=== PATIENT | female | born 1955 | race Caucasian/White ===

== ENCOUNTER → 2018-07-23 | Outpatient (CLI) | payer BC ==
--- NOTE | 2018-07-23 15:56 | MR ---
Right hip MRI HISTORY: Right hip pain Multiplanar multisequence imaging obtained through the pelvis with small [id number]-pa-[id number] images through the right hip No plain film correlation. Degenerative disc changes are noted in the visualized lumbar spine. The right hip shows joint space loss, subchondral marrow signal change, possible geode formation in t he femoral head remodeling, there is marginal spurring present. There is a joint effusion. No evident fracture or dislocation. Grade 3 to grade IV chondromalacia is present. Uterus shows approximate 4 cm fibroid. No free fluid in the pelvis. IMPRESSION: Osteoarthritis. Fibroid uterus. Degenerative disc disease lumbosacral spine.
== END | disposition home or self-care (01) ==
LOC: RADMRIMAIN 11:54
PROVIDERS: ATTEND Family Medicine
DX: M16.11 Unilateral primary osteoarthritis, right hip (principal); M51.37 Other intervertebral disc degeneration, lumbosacral region

== ENCOUNTER → 2019-05-22 | Outpatient (CLI) | payer BC ==
[2019-05-22 14:26] LABS: ALT 27 U/L (9-52); AST 22 U/L (14-36); African American GFR (CKD) >90 (>60 ml/min/1.73 sqM); Albumin 4.3 g/dL (3.5-5.0); Alkaline Phosphatase 69 U/L (38-126); Anion Gap 10 mmol/L; Blood Urea Nitrogen 15 mg/dL (7-17); Calcium 9.5 mg/dL (8.4-10.2); Carbon Dioxide 23 mmol/L (22-30); Chloride 107 mmol/L (98-107); Glucose 117 mg/dL (74-99); INR 0.9 (<1.2); Partial Thromboplastin Time 24.3 sec (22.0-30.0); Potassium 4.6 mmol/L (3.5-5.1); Sodium 140 mmol/L (137-145); Total Bilirubin 0.5 mg/dL (0.2-1.3); Total Protein 7.4 g/dL (6.3-8.2)
[2019-05-22 14:30] LABS: HCT 44.6 % (34.0-46.0); HGB 14.4 gm/dL (11.4-16.0); MCH 31.2 pg (25.0-35.0); MCHC 32.3 g/dL (31.0-37.0); MCV 96.6 fL (80.0-100.0); Platelet Count 372 k/uL (150-450); RBC 4.62 m/uL (3.80-5.40); RDW 14.5 % (11.5-15.5); WBC 12.6 k/uL (3.8-10.6)
[2019-05-22 14:48] LABS: Appearance,Urine Clear (Clear); Bilirubin,Urine Negative (Negative); Blood,Urine Negative (Negative); Color,Urine Light Yellow; Glucose,Urine (UA) Negative (Negative); Ketones,Urine Negative (Negative); Leukocyte Esterase,Urine Negative (Negative); Nitrite,Urine Negative (Negative); Protein,Urine Negative (Negative); Specific Gravity,Urine 1.007 (1.001-1.035); Urobilinogen,Urine <2.0 mg/dL (<2.0)
== END | disposition home or self-care (01) ==
LOC: LABPAT 12:03
PROVIDERS: ATTEND Orthopaedic Surgery
DX: Z01.818 Encounter for other preprocedural examination (principal); Z01.812 Encounter for preprocedural laboratory examination; M16.11 Unilateral primary osteoarthritis, right hip
CPT/HCPCS: 36415; 80053; 81003; 85027; 85610; 85730; 87070; 93005

== ENCOUNTER 2019-06-01 05:39 | Inpatient (IN) | payer BC ==
[2019-05-26 10:36] VITALS: BMI 33.0
[~2019-06-01 05:39] MED LIST: ACETAMINOPHEN TAB 500 MG TAB PO ONE; GABAPENTIN 300 MG CAP PO ONE; MELOXICAM 7.5 MG TAB PO ONE; TRANEXAMIC ACID 1,000 MG in SODIUM CHLORIDE 0.9% 100 ML IVPB ONE
[2019-06-01] MEDS ORDERED: ROPIVACAINE 246.25 MG, EPINEPHrine 0.5 MG, KETOROLAC 30 MG, cloNIDine HCL/PF 80 MCG, WA... MISCELLANE ONE ×5 (06:00)
[2019-06-01] MEDS ORDERED: LIDOCAINE 1% 20 ML VIAL (10MG/ML) FOR IV START INTRADERMA PRN (06:18)
[2019-06-01] MEDS ORDERED: ONDANSETRON 4 MG/2 ML VIAL IVP ONE (06:18)
[2019-06-01] MEDS ORDERED: HYDROmorphone 0.5 MG/0.5 ML SYRINGE IVP PRN ×3 (06:18→07:00)
[2019-06-01 06:37] LABS: Glucose,Whole Blood 93 mg/dL (75-99)
[2019-06-01] MEDS: LACTATED RINGERS 1,000 ML IV SCH (06:37)
[2019-06-01] MEDS ORDERED: DEXAMETHASONE SOD PHOSPHATE 10 MG/ML 1 ML VIAL IV ONE (06:38)
[2019-06-01] MEDS ORDERED: TRANEXAMIC ACID 1,000 MG/10 ML VIAL ONE (06:57)
[2019-06-01] MEDS ORDERED: ePHEDrine SULFATE/0.9% NACL/PF 50 MG/5 ML SYRINGE IV ONE (06:57)
[2019-06-01] MEDS ORDERED: SODIUM CHLORIDE 0.9% 100 ML BAG ONE (06:57)
[2019-06-01] MEDS ORDERED: PHENYLEPHRINE-0.9% NACL SYG 1 MG/10 ML SYRINGE ONE (06:57)
[2019-06-01] MEDS ORDERED: MIDAZOLAM 2 MG/2 ML VIAL ONE (06:57)
[2019-06-01] MEDS ORDERED: LACTATED RINGERS 1,000 ML BAG IV ONE (06:57)
[2019-06-01] MEDS ORDERED: fentaNYL (PF) 50 MCG/ML 2 ML AMP ONE (06:57)
[2019-06-01] MEDS ORDERED: PROPOFOL 10 MG/ML 20 ML VIAL IV ONE (06:57)
[2019-06-01] MEDS ORDERED: HEPARIN SODIUM,PORCINE 10,000 UNIT/ML 1 ML VIAL ONE (06:57)
[2019-06-01] MEDS ORDERED: hydrOXYzine PAMOATE 25 MG CAP PO PRN (07:00)
[2019-06-01] MEDS ORDERED: HYDROcodone/APAP 5-325MG 1 EACH TAB PO PRN (07:00)
[2019-06-01] MEDS ORDERED: NALOXONE 0.4 MG/ML 1 ML VIAL IV PRN (07:00)
[2019-06-01] MEDS ORDERED: ONDANSETRON 4 MG/2 ML VIAL IVP PRN (07:00)
[2019-06-01] MEDS ORDERED: MAGNESIUM HYDROXIDE 2,400 MG/10 ML CUP PO PRN (07:00)
[2019-06-01] MEDS ORDERED: HYDROmorphone 1 MG/ML 1 ML SYRINGE IVP PRN (07:00)
[2019-06-01] MEDS ORDERED: DIAZEPAM 5 MG TAB PO PRN (07:00)
[2019-06-01] MEDS ORDERED: ceFAZolin 3,000 MG in SODIUM CHLORIDE 0.9% IRRIGATIO 3,000 ML IRRIGATION ONE (07:00)
[2019-06-01] MEDS ORDERED: LACTATED RINGERS 1,000 ML IV ONE (08:01)
--- NOTE | 2019-06-01 08:28 | P.OP ---
Date of Procedure: 06/01/19 Preoperative Diagnosis: Severe osteoarthritis right hip Postoperative Diagnosis: Severe osteoarthritis right hip Procedure(s) Performed: Right total hip arthroplasty with a direct anterior approach Implants: Silva and nephew Polarstem size 4 standard Silva & Nephew R3, 3 hole acetabular shell, 48 mm Silva & Nephew reflection 6.5 mm cancellus screw, 20 mm 2 Silva [employer] Nephew R3, XLPE 20 acetabular liner Silva & Nephew Oxinium femoral head 32 m, -3 All components were press-fit. The articulation is Oxinium on polyethylene. Anesthesia: spinal Surgeon: Narendra Penaloza Network Contract Manager #1: Tamra Brown Estimated Blood Loss (ml): 100 Pathology: other (Femoral head) Condition: stable Disposition: PACU Indications for Procedure: After failure of conservative treatment we discussed the surgical and nonsurgical treatment options at length. Patient wishes to proceed with a total hip arthroplasty with a direct anterior approach. Complications specific to this procedure were discussed at length, including but not limited to infection, leg length discrepancy, dislocation, and nerve injury. Patient is aware of all these complications and informed consent was obtained Operative Findings: The operative findings are consistent with severe osteoarthritis of the right hip Description of Procedure: Patient was seen and evaluated in the preoperative area, consent was reviewed, and the surgical site was marked with a skin marker. Patient was then brought to the operating room and given prophylactic antibiotics intravenously. 1 g of Tranexamic acid was also given. A spinal anesthetic was administered by the anesthesia department. The patient was then placed on the [place] table with the bony prominences well-padded. The hip area was then prepped and draped in usual sterile fashion. A universal timeout was then performed, which confirmed the patient's name, surgical site, ALLERGIES, and procedure being performed. Next the incision site was located at 1 cm distal and 1 cm lateral to the anterior superior iliac spine. The skin and subcutaneous tissues were sharply incised. Incision was carefully dissected down to the fascia overlying the tensor fascia santo muscle. This fascia was then incised in line with the incision. Next, using blunt finger dissection, the tensor fascia santo muscle was dissected off its investing fascia. The muscle was then carefully retracted laterally with a cobra retractor over the lateral neck of the femur. Next, the circumflex vessels were identified and cauterized using the AquaMantis device. The anterior hip capsule was then exposed. The capsule was then opened and an inverted T fashion. Cobra retractors were then placed intracapsularly. The proximal femur was then visualized. The femoral neck was then osteotomized appropriate level above the lesser trochanter. Small amount of traction was placed with the [place] table. A small wedge of bone was then removed from the remaining femoral head. Next, using a corkscrew femoral head was easily removed from the acetabulum. On gross visual inspection, the femoral head had complete loss of articular cartilage in multiple periarticular osteophytes. Attention was then turned to the acetabulum. the acetabulum was exposed and any remaining labrum was excised. Sequential reaming of the acetabulum was performed using fluoroscopic guidance. When the appropriate size was reached, a trial was then placed. The position and fit of the trial was checked with fluoroscopy. The trial was then removed. Then, using fluoroscopic guidance, the final implant was impacted at 20 of anteversion and 40 of abduction, and fully seated in the acetabulum. 2 screws were then placed in the acetabulum. Again fluoroscopy was used to check position of the screws. Next, the liner was then impacted, with a 20 elevated liner located in the anterior superior quadrant. Component locking was confirmed. Attention was then directed to the femur. With the aid of the [place] table, the femur was externally rotated to approximately 130, extended, and abducted under the opposite leg. A side hook was then placed under the proximal femur, and the side hook elevator was used to elevate the proximal femur. Retractors were then placed. A capsular release was performed, as well as a release of the conjoined tendon, which afforded excellent visualization of the proximal femur. Next, a box osteotome was used to lateralize the proximal femur. A rig hand was then used to locate the femoral canal. Sequential broaching was then performed with appropriate size which afforded excellent fixation in the proximal femur. A trial was then placed with appropriate head and neck, and the hip was gently reduced with the aid of the [place] table. Fluoroscopy was then used to check position of the components, as well as to ensure equal leg lengths. The hip was then gently dislocated and the trials were then removed. Final implants were then impacted and the hip was again reduced. Final fluoroscopic x-rays confirmed that the components were in anatomic position, as well as equal leg lengths. The hip was also taken through range of motion, and found to be stable. The hip was then copiously irrigated with antibiotic solution with pulsatile lavage. The hip was then irrigated with Irrisept solution. The soft tissues were then injected with a ropivacaine solution, which consisted of 246.25 mg of ropivacaine, 0.5 mg of epinephrine, 30 mg of Toradol, 80 g of clonidine, and 48.45 mL of sterile water, for a total of 100 mL of fluid injected. A second dose of 1 g of Tranexamic acid was also given. the fascia was then closed with 2-0 strata fix suture. The subcutaneous tissue was closed with 3-0 Vicryl. The subcuticular tissue was closed with 3-0 strata fix suture. The skin was then closed with Dermabond glue and a sterile silver dressing. The patient was then transferred to the recovery room in stable condition. The animal care assistant VIKKI Aceevdo was required due to the complexity of surgery, and the need for skilled salesperson surgical appliances for positioning, draping, exposure, retraction, and closure of the wound.
--- NOTE | 2019-06-01 09:26 | XR ---
Limited right hip HISTORY: Status post right hip arthroplasty Single frontal view of the right hip Patient is status post right hip arthroplasty. There is anatomic alignment. Lucency is present in the soft tissues consistent with postop state. Exam somewhat limited technically. IMPRESSION: Orthopedic follow-up.
[2019-06-01] MEDS: SODIUM CHLORIDE 0.9% 1,000 ML IV SCH ×2 (12:36→20:15)
[2019-06-01] MEDS: ALPRAZolam 1 MG TAB PO SCH ×2 (14:59→21:32)
[2019-06-01 16:19] LABS: Glucose,Whole Blood 130 mg/dL (75-99)
--- NOTE | 2019-06-01 16:27 | FL ---
Fluoroscopy HISTORY: Anterior hip replacement 34 seconds fluoroscopy time supplied to the referring clinician. 2 intraoperative C-arm images docum ent the procedure. See dictated report from orthopedic surgery.
--- NOTE | 2019-06-01 16:27 | XR ---
Limited right hip HISTORY: Anterior hip replacement 2 intraoperative C-arm images document the procedure.
[2019-06-01] MEDS: traZODone HCL 100 MG TAB PO SCH (20:15)
[2019-06-01] MEDS: metFORMIN 500 MG TAB PO SCH (20:15)
[2019-06-01] MEDS: ASPIRIN 325 MG TAB PO SCH (20:15)
[2019-06-01] MEDS: SENNOSIDES-DOCUSATE SODIUM 1 EACH TAB PO SCH (20:15)
[2019-06-01 20:18] LABS: Glucose,Whole Blood 197 mg/dL (75-99)
[2019-06-01] MEDS: HYDROcodone/APAP 5-325MG 1 EACH TAB PO PRN (21:33)
--- NOTE | 2019-06-01 23:33 | P.CONS ---
History of Present Illness - Reason for Consult Consult date: 06/01/19 Medical management of diabetes - Chief Complaint Right hip arthroplasty - History of Present Illness Patient is a 63-year-old female with a known history of diabetes type 2 [id number], osteoarthritis, history of gastric ulcer and pustular psoriasis currently on methotrexate and prednisone at home and obesity with BMI 34.2 was admitted to the hospital for elective right total hip arthroplasty. Patient underwent right hip arthroplasty with a direct anterior approach. Patient just came back from surgery and Currently patient complains of numbness of the right leg and unable to stand by herself. Patient denied any complaints of chest pain or shortness of breath. No headache or dizziness or lightheadedness. No fever no chills. No nausea vomiting or abdominal pain. Postoperatively CBG is elevated up to 190s Review of Systems Constitutional: Patient denies any fever or chills . No generalized weakness or weight loss. Abdomen: Patient denied nausea vomiting and diarrhea and abdominal pain. Cardiovascular: Patient denies any chest pain or short of breath no palpitations. Respiratory: patient denied any cough is from production. No shortness of breath Neurologic: Patient denied any numbness or tingling headache. Musculoskeletal: Patient denies any complaints of joint swelling or deformity. Skin: Negative Psychiatric: Negative Endocrine: No heat or cold intolerance. No recent weight gain. Genitourinary: No dysuria or hematuria. All other 14 point ROS negative except the above Past Medical History Past Medical History: Diabetes Mellitus, Osteoarthritis (OA), Skin Disorder Additional Past Medical History / Comment(s): Hx gastric ulcer., psoriasis., pain right hip History of Any Multi-Drug Resistant Organisms: None Reported Past Surgical History: Section Additional Past Surgical History / Comment(s): x3 Past Anesthesia/Blood Transfusion Reactions: No Reported Reaction, Motion Sickness Past Psychological History: Anxiety, Depression Smoking Status: Current every day smoker Past Alcohol Use History: None Reported Additional Past Alcohol Use History / Comment(s): PATIENT VAPES FOR THE LAST 6 YEARS, QUIT CIGARETTES 6 YRS AGO, HX OF 1 1/2 PPD., STARTED SMOKING AGE 14. Past Drug Use History: None Reported - Past Family History Father Family Medical History: Deep Vein Thrombosis (DVT) Sister(s) Family Medical History: Cancer Medications and Allergies Home Medications Medication Instructions Recorded Confirmed Type ALPRAZolam [Xanax] 1 mg PO TID 05/26/19 06/01/19 History Acetaminophen [Tylenol Extra 1,000 mg PO DIRECTED PRN 05/26/19 06/01/19 History Strength] Alendronate Sodium [Fosamax] 70 mg PO WEEKLY 05/26/19 06/01/19 History Folic Acid 0.8 mg PO DAILY 05/26/19 06/01/19 History Methotrexate Sodium [Methotrexate] 20 mg PO WEEKLY 05/26/19 06/01/19 History metFORMIN HCL [Glucophage] 500 mg PO BID 05/26/19 06/01/19 History predniSONE 10 mg PO DAILY 05/26/19 06/01/19 History traZODone HCL 200 mg PO HS 05/26/19 06/01/19 History Allergies Allergy/AdvReac Type Severity Reaction Status Date / Time nickel Allergy Unknown Itching, Verified 06/01/19 06:04 Redness, Dermatitis H2 INHIBITORS Allergy Severe Hives Uncoded 06/01/19 06:04 SURGICAL KAYCE Allergy Unknown Itching, Uncoded 06/01/19 06:04 Redness, Dermatitis Physical Exam Vitals: Vital Signs Temp Pulse Pulse Resp BP Pulse Ox 06/01/19 19:36 98.2 F 88 18 115/70 96 06/01/19 15:00 98.6 F 80 16 110/64 98 06/01/19 12:38 97.9 F 89 16 120/77 98 06/01/19 12:00 78 20 114/63 95 06/01/19 11:30 88 18 108/56 100 06/01/19 11:03 78 20 109/65 96 06/01/19 10:32 85 18 110/56 100 06/01/19 10:02 96 18 101/59 96 06/01/19 09:32 74 18 85/44 92 L 06/01/19 09:15 79 18 91/46 92 L 06/01/19 09:00 70 18 138/55 94 L 06/01/19 08:40 97.3 F L 95 18 123/50 93 L 06/01/19 06:33 97.2 F L 84 18 125/64 97 Intake and Output 06/01/19 06/01/19 06/02/19 14:59 22:59 06:59 Intake Total 2311 300 Output Total 400 Balance 1911 300 Intake: IV 1751 Oral 560 300 Output: Urine 300 Estimated Blood Loss 100 Other: Voiding Method Bedpan Bedside Commode # Voids 1 PHYSICAL EXAMINATION: Patient is lying in the bed comfortably, no acute distress, awake alert and oriented.. HEENT: Normocephalic. Neck is supple. Pupils reactive. Nostrils clear. Oral cavity is moist. Ears reveal no drainage. Neck reveals no JVD, carotid bruits, or thyromegaly. CHEST EXAMINATION: Trachea is central. Symmetrical expansion. Lung buckner clear to auscultation and percussion. CARDIAC: Normal S1, S2 with no gallops. No murmurs ABDOMEN: Soft. Bowel sounds normal. No organomegaly. No abdominal bruits. Extremities: reveal no edema. No clubbing or cyanosis Neurologically awake, alert, oriented x3 with well-coordinated movements. No focal deficits noted Skin: No rash or skin lesions. Psychiatric: Coperative. Nonsuicidal Musculoskeletal: No joint swelling or deformity. Normal range of motion. Right hip surgical site intact. Results Labs: Abnormal Lab Results - Last 24 Hours (Table) 06/01/19 06/01/19 Range/Units 16:16 20:17 POC Glucose (mg/dL) 130 H 197 H (75-99) mg/dL Assessment and Plan Assessment: Right total hip arthroplasty postoperative day 0 Diabetes type 2 [id number] Mild hyperglycemia Osteoarthritis History of gastric ulcer Psoriasis currently on methotrexate and prednisone at home Anxiety/depression Ongoing nicotine addiction GI and DVT prophylaxis Plan: Patient will be continued on pain management and bowel regimen and DVT prophylaxis. Continue the home medications and follow closely. Continue metformin and insulin sliding scale as needed. We will follow up closely. Further recommendations based on the clinical course. Encourage ambulation and incentive spirometry. Follow-up labs tomorrow. Thank you for your consult. Time with Patient: Greater than 30
[2019-06-02] MEDS: LACTATED RINGERS 1,000 ML IV SCH (01:22)
[2019-06-02] MEDS: HYDROcodone/APAP 5-325MG 1 EACH TAB PO PRN ×3 (05:59→17:10)
[2019-06-02 07:00] LABS: Glucose,Whole Blood 95 mg/dL (75-99)
[2019-06-02] MEDS: MELOXICAM 7.5 MG TAB PO SCH (07:14)
[2019-06-02] MEDS: metFORMIN 500 MG TAB PO SCH ×2 (07:14→20:17)
[2019-06-02] MEDS: ALPRAZolam 1 MG TAB PO SCH ×3 (07:15→23:10)
[2019-06-02] MEDS: SODIUM CHLORIDE 0.9% 1,000 ML IV SCH (07:15)
[2019-06-02] MEDS: FOLIC ACID 1 MG TAB PO SCH (07:15)
[2019-06-02] MEDS: ASPIRIN 325 MG TAB PO SCH ×2 (07:15→20:17)
[2019-06-02] MEDS: FAMOTIDINE 20 MG TAB PO SCH ×2 (07:15→20:17)
--- NOTE | 2019-06-02 09:22 | P.DS ---
Providers Date of admission: 06/01/19 05:39 Expected date of discharge: 06/02/19 Attending physician: Narendra Penaloza Consults: 06/01/19 07:00 Consult Physician Routine Consulting Provider: Brian Watkins Consult Reason/Comments: medical management Do you want consulting provider notified?: Yes Primary care physician: Jolie Belle - Discharge Diagnosis(es) (1) Osteoarthritis of right hip Current Visit: Yes Status: Acute (2) Status post total hip replacement, right Current Visit: Yes Status: Acute Hospital Course: This is a 63-year-old female with known history of degenerative arthritis of the right hip. The patient presents for evaluation. After discussion and consideration patient elects to proceed with total hip arthroplasty. The patient is seen preoperatively by Dr. Penaloza and medically cleared for surgery by their primary care physician. Patient is admitted to [facility] on 06/01/2019 for total hip arthroplasty. The procedures performed without complication or sequelae. The patient is doing well postoperatively. Labs and vital signs are stable on day of discharge. On day of discharge patient's hip incision is healing well. There is minimal erythema. There is no drainage noted at this time. There is minimal soft tissue swelling to the hip and thigh. Patient has full foot and ankle motion without difficulty or pain. Calf is soft and nontender to palpation. Neurovascular status to the right lower extremity is intact. Patient is discharged home in good condition. Opioid start talking form is reviewed and signed at patient bedside. Please see med rec for accurate list of home medications. Plan - Discharge Summary Discharge Rx Participant: Yes New Discharge Prescriptions: New Aspirin 325 mg PO BID #60 tab HYDROcodone/APAP 5-325MG [[place] 5-325] 1 - 2 tab PO Q6HR PRN #56 tab PRN Reason: Pain Sennosides [Senokot] 1 tab PO BID #60 tablet No Action Methotrexate Sodium [Methotrexate] 20 mg PO WEEKLY metFORMIN HCL [Glucophage] 500 mg PO BID predniSONE 10 mg PO DAILY ALPRAZolam [Xanax] 1 mg PO TID traZODone HCL 200 mg PO HS Folic Acid 0.8 mg PO DAILY Alendronate Sodium [Fosamax] 70 mg PO WEEKLY Acetaminophen [Tylenol Extra Strength] 1,000 mg PO DIRECTED PRN PRN Reason: Pain Discharge Medication List ALPRAZolam [Xanax] 1 mg PO TID 05/26/19 [History] Acetaminophen [Tylenol Extra Strength] 1,000 mg PO DIRECTED PRN 05/26/19 [History] Alendronate Sodium [Fosamax] 70 mg PO WEEKLY 05/26/19 [History] Folic Acid 0.8 mg PO DAILY 05/26/19 [History] Methotrexate Sodium [Methotrexate] 20 mg PO WEEKLY 05/26/19 [History] metFORMIN HCL [Glucophage] 500 mg PO BID 05/26/19 [History] predniSONE 10 mg PO DAILY 05/26/19 [History] traZODone HCL 200 mg PO HS 05/26/19 [History] Aspirin 325 mg PO BID #60 tab 06/02/19 [Rx] HYDROcodone/APAP 5-325MG [[place] 5-325] 1 - 2 tab PO Q6HR PRN #56 tab 06/02/19 [Rx] Sennosides [Senokot] 1 tab PO BID #60 tablet 06/02/19 [Rx] Follow up Appointment(s)/Referral(s): Jolie Belle DO [Primary Care Provider] - 1 Week Narendra Penaloza DO [Doctor of Osteopathic Medicine] - 06/17/19 11:05 am Activity/Diet/Wound Care/Special Instructions: Weightbearing as tolerated with walker. Leave dressing intact. Dressing may be removed by home care nurse or by patient in 10 days. May shower with dressing on. Recommend use of compression stockings daily for at least 2 weeks during the day to help prevent swelling and blood clots. May remove at night before sleeping. Please follow-up with [facility] in 2 weeks and call with any questions or concerns, . Discharge Disposition: HOME WITH HOME HEALTH SERVICES
[2019-06-02] MEDS ORDERED: METHOTREXATE SODIUM 2.5 MG TAB PO SCH (10:00)
[2019-06-02] MEDS: predniSONE 10 MG TAB PO SCH (10:04)
[2019-06-02 10:16] LABS: African American GFR (CKD) >90 (>60 ml/min/1.73 sqM); Anion Gap 7 mmol/L; Blood Urea Nitrogen 14 mg/dL (7-17); Calcium 8.7 mg/dL (8.4-10.2); Carbon Dioxide 24 mmol/L (22-30); Chloride 108 mmol/L (98-107); Glucose 79 mg/dL (74-99); Potassium 4.1 mmol/L (3.5-5.1); Sodium 139 mmol/L (137-145)
[2019-06-02 10:50] LABS: Basophils # (A) 0.1 k/uL (0-0.2); Basophils % (A) 1 %; Eosinophils # (A) 0.1 k/uL (0-0.7); Eosinophils % (A) 1 %; HCT 34.2 % (34.0-46.0); Lymphocytes # (A) 3.3 k/uL (1.0-4.8); Lymphocytes % (A) 28 %; MCH 31.5 pg (25.0-35.0); MCHC 32.9 g/dL (31.0-37.0); MCV 95.7 fL (80.0-100.0); Mean Platelet Volume 6.5; Monocytes # (A) 0.7 k/uL (0-1.0); Monocytes % (A) 6 %; Neutrophils # (A) 7.6 k/uL (1.3-7.7); Neutrophils % (A) 64 %; Platelet Count 293 k/uL (150-450); RBC 3.57 m/uL (3.80-5.40); RDW 14.2 % (11.5-15.5); WBC 11.9 k/uL (3.8-10.6)
[2019-06-02 10:52] LABS: HGB 11.2 gm/dL (11.4-16.0)
[2019-06-02 11:40] LABS: Glucose,Whole Blood 114 mg/dL (75-99)
[2019-06-02 16:55] LABS: Glucose,Whole Blood 108 mg/dL (75-99)
[2019-06-02] MEDS: SENNOSIDES-DOCUSATE SODIUM 1 EACH TAB PO SCH (20:17)
[2019-06-02] MEDS: traZODone HCL 100 MG TAB PO SCH (20:17)
[2019-06-02 20:24] LABS: Glucose,Whole Blood 128 mg/dL (75-99)
[2019-06-03 01:52] VITALS: PULSE 79
[2019-06-03] MEDS: LACTATED RINGERS 1,000 ML IV SCH (02:13)
[2019-06-03] MEDS: SODIUM CHLORIDE 0.9% 1,000 ML IV SCH (02:13)
[2019-06-03] MEDS: HYDROcodone/APAP 5-325MG 1 EACH TAB PO PRN ×2 (03:51→10:21)
[2019-06-03 07:10] LABS: Glucose,Whole Blood 100 mg/dL (75-99)
[2019-06-03 07:21] VITALS: BP 118/71; RESP 16; TEMP 98.9
[2019-06-03] MEDS: metFORMIN 500 MG TAB PO SCH (08:02)
[2019-06-03] MEDS: FAMOTIDINE 20 MG TAB PO SCH (08:03)
[2019-06-03] MEDS: ASPIRIN 325 MG TAB PO SCH (08:03)
[2019-06-03] MEDS: MELOXICAM 7.5 MG TAB PO SCH (08:03)
[2019-06-03] MEDS: predniSONE 10 MG TAB PO SCH (08:03)
[2019-06-03] MEDS: ALPRAZolam 1 MG TAB PO SCH (08:03)
[2019-06-03] MEDS: FOLIC ACID 1 MG TAB PO SCH (08:04)
[2019-06-03] MEDS ORDERED: METHOTREXATE SODIUM 2.5 MG TAB PO SCH (09:00)
[2019-06-09] MEDS ORDERED: METHOTREXATE SODIUM 2.5 MG TAB PO SCH (09:00)
== END 2019-06-03 10:55 | disposition home health service (06) | DRG 470 ==
LOC: 2ORMAIN 05:39 → EDSTATUS 07:00 → 4SSUR 11:28
PROVIDERS: ADMIT Orthopaedic Surgery; ATTEND Orthopaedic Surgery
PROC: 0SR906A Replacement of Right Hip Joint with Oxidized Zirconium on Polyethylene Synthetic Substitute, Uncemented, Open Approach (ICD-10-PCS; principal; 2019-06-01 07:00)
DX: M16.11 Unilateral primary osteoarthritis, right hip (principal); T84.84XA Pain due to internal orthopedic prosthetic devices, implants and grafts, initial encounter; E11.65 Type 2 diabetes mellitus with hyperglycemia; E66.9 Obesity, unspecified; F17.290 Nicotine dependence, other tobacco product, uncomplicated; F32.9 Major depressive disorder, single episode, unspecified; F41.9 Anxiety disorder, unspecified; L40.9 Psoriasis, unspecified; Z68.34 Body mass index [BMI] 34.0-34.9, adult; Z79.83 Long term (current) use of bisphosphonates; Z79.84 Long term (current) use of oral hypoglycemic drugs; Z87.11 Personal history of peptic ulcer disease; Z79.52 Long term (current) use of systemic steroids; Z79.899 Other long term (current) drug therapy; Z83.2 Family history of diseases of the blood and blood-forming organs and certain disorders involving the immune mechanism; Z80.9 Family history of malignant neoplasm, unspecified
CPT/HCPCS: 73501; 80048; 85025; 86850; 86891; 86900; 86901; 88300

== ENCOUNTER 2020-12-01 20:46 | Emergency (ER) | payer BC ==
[2020-12-01] MEDS ORDERED: ACETAMINOPHEN TAB 500 MG TAB PO STA (21:14)
[2020-12-01] MEDS ORDERED: SODIUM CHLORIDE 0.9% 500 ML 500 ML IV STA (21:14)
--- NOTE | 2020-12-01 21:28 | XR ---
EXAMINATION TYPE: XR chest 1V portable DATE OF EXAM: 12/01/2020 HISTORY: Shortness of breath. COMPARISON: None. TECHNIQUE: Single view of the chest is submitted. FINDINGS: Demonstrated are scattered senescent parenchymal change. There is no evidence for focal infiltrate. The heart is stable. Hilar and mediastinal structures are within normal limits. Degenerative changes are seen of the dorsal spine. IMPRESSION: 1. Chronic changes without evidence for acute pulmonary disease.
[2020-12-01 21:42] LABS: Calcium 8.9 mg/dL (8.4-10.2); Potassium 4.8 mmol/L (3.5-5.1)
[2020-12-01 21:46] LABS: Basophils % (A) 0 %; Eosinophils # (A) 0.2 k/uL (0-0.7); Eosinophils % (A) 2 %; Lymphocytes % (A) 8 %; MCH 29.5 pg (25.0-35.0); MCHC 33.2 g/dL (31.0-37.0); MCV 88.9 fL (80.0-100.0); Monocytes # (A) 0.5 k/uL (0-1.0); Monocytes % (A) 4 %; Neutrophils # (A) 10.7 k/uL (1.3-7.7); Neutrophils % (A) 86 %; Platelet Count 694 k/uL (150-450); RBC 1.36 m/uL (3.80-5.40); RDW 15.3 % (11.5-15.5); WBC 12.5 k/uL (3.8-10.6)
[2020-12-01 21:48] LABS: HCT 12.1 % (34.0-46.0)
[2020-12-01] MEDS ORDERED: PANTOPRAZOLE 40 MG/10 ML VIAL IVP STA (22:10)
--- NOTE | 2020-12-01 22:14 | ED ---
General Adult HPI - General Chief complaint: Weakness Stated complaint: Fall, Weakness Time Seen by Provider: 12/01/20 20:51 Source: patient, EMS Mode of arrival: EMS Limitations: no limitations - History of Present Illness Initial comments: Dictation was produced using [employer] dictation software. please excuse any grammatical, word or spelling errors. This patient was cared for during a federal and state declared state of emergency secondary to Covid 19 Chief Complaint: 65-year-old female brought in by EMS for increased weakness. History of Present Illness: Patient is a 65-year-old female she presents to the emergency department for increasing weakness. Patient states that she's been significantly for the last several days. She is a poor historian. She is accompanied by her significant other who is also a poor historian. She states she does not take any anticoagulation medications per she has past medical history of diabetes. She came complains of chronic bilateral hip pain. She denies any lower back pain. She is not sure if she is having any GI bleeding. The ROS documented in this emergency department record has been reviewed and confirmed by me. Those systems with pertinent positive or negative responses have been documented in the HPI. All other systems are other negative and/or noncontributory. PHYSICAL EXAM: General Impression: Alert and oriented x3, lethargic, pale HEENT: Normocephalic atraumatic, extra-ocular movements intact, pupils equal and reactive to light bilaterally, dry mucous membranes Cardiovascular: Heart regular rate and rhythm Chest: Able to complete full sentences, no retractions, no tachypnea Abdomen: abdomen soft, non-tender, non-distended, no organomegaly Musculoskeletal: Pulses present and equal in all extremities, no peripheral edema Motor: no focal deficits noted Neurological: CN II-XII grossly intact, no focal motor or sensory deficits noted Skin: Intact with no visualized rashes Psych: Normal affect and mood Rectal: No gross blood ED course: 65-year-old female presents to the emergency department for weakness. As upon arrival shows temperature 103.1, heart rate of 130. Tach is likely secondary to pyrexia. Rest of vital signs are within acceptable limits. Laboratory evaluation obtained. Mild leukocytosis at 12.5. She is hemoglobin of 4.0 and hematocrit of 12.1 with a platelet count of 694. Metabolic panel is within acceptable limits. RDW is within normal limits. Patient's medications were reviewed. There is concern of systemic inflammatory response syndrome. Sepsis unlikely however she does have elevated temperature but does have a mild leukocytosis. Pyrexia is likely secondary to adverse reaction to mid and a vaccine however there is concern of perhaps sepsis. Patient given 1 dose of broad-spectrum antibiotics. Given patient's degree of laboratory abnormalities case is discussed with Dr. Dhillon who is willing to accept patients care to the ICU. Patient will remain a ICU hold in emergency department the last few bit becomes available. Case discussed with Xochitl Mathew is willing to accept patients can be half of [facility] hospitalist group. Given Protonix and ordered for 2 units of blood transfusion. At this point is unclear the cause of patient's anemia. Does not appear to be that she is having acute blood loss anemia given that she has no localizing symptoms. She does not have any lower back pain or any sites of obvious bleeding. Her abdomen is soft. EKG interpretation: Ventricular rate 137, sinus tachycardia,. 136, QRS 68, QTc 416. No CA prolongation, no QTC prolongation, no ST or T-wave changes noted. EKG compared to 05/22/2019 showing no changes. Overall, this EKG is unremarkable Redraw shows he will 13.4 which is a normal result. Transfusion was canceled. Initial result was a lab error. At this point is no concerns for anemia. Patient's symptoms are all likely secondary to moderna vaccination.ICU admission was canceled. Patient is reevaluated at 11:48 PM found to be in stable medical condition. She feels well. Patient agreeable for discharge. She is told to wilver Swift. admission was canceled. - Related Data Home Medications Medication Instructions Recorded Confirmed ALPRAZolam [Xanax] 1 mg PO TID PRN 05/26/19 12/01/20 metFORMIN HCL [Glucophage] 500 mg PO BID 05/26/19 12/01/20 metHOTREXate sodium [Methotrexate] 12.5 mg PO OMALLEY 05/26/19 12/01/20 predniSONE 10 mg PO DAILY 05/26/19 12/01/20 traZODone HCL 200 mg PO HS 05/26/19 12/01/20 Ergocalciferol (Vitamin D2) 1,250 mcg PO OMALLEY 12/01/20 12/01/20 [Drisdol (50,000 Iu)] Milk Thistle 200 mg PO HS 12/01/20 12/01/20 Allergies Allergy/AdvReac Type Severity Reaction Status Date / Time nickel Allergy Unknown Itching, Verified 12/01/20 21:52 Redness, Dermatitis H2 INHIBITORS Allergy Severe Hives Uncoded 12/01/20 21:52 SURGICAL KAYCE Allergy Unknown Itching, Uncoded 12/01/20 21:52 Redness, Dermatitis Review of Systems ROS Statement: Those systems with pertinent positive or pertinent negative responses have been documented in the HPI. ROS Other: All systems not noted in ROS Statement are negative. Past Medical History Past Medical History: Diabetes Mellitus, Osteoarthritis (OA), Skin Disorder Additional Past Medical History / Comment(s): Hx gastric ulcer., psoriasis., pain right hip History of Any Multi-Drug Resistant Organisms: None Reported Past Surgical History: Section Additional Past Surgical History / Comment(s): x3 Past Anesthesia/Blood Transfusion Reactions: No Reported Reaction, Motion Sickness Past Psychological History: Anxiety, Depression Smoking Status: Former smoker Past Alcohol Use History: None Reported Past Drug Use History: None Reported - Past Family History Father Family Medical History: Deep Vein Thrombosis (DVT) Sister(s) Family Medical History: Cancer General Exam Limitations: no limitations Course Vital Signs 12/01/20 12/01/20 12/01/20 20:52 21:27 21:32 Temperature 103.1 F H Pulse Rate 128 H 130 H Respiratory 20 16 16 Rate Blood Pressure 170/85 162/86 O2 Sat by Pulse 94 L 94 L Oximetry 12/01/20 12/01/20 12/01/20 21:34 22:00 22:36 Temperature Pulse Rate 129 H 127 H Respiratory 16 16 16 Rate Blood Pressure 144/79 142/83 144/90 O2 Sat by Pulse 96 96 98 Oximetry 12/01/20 12/01/20 23:07 23:24 Temperature 101.3 F H Pulse Rate 125 H 120 H Respiratory 16 16 Rate Blood Pressure 116/74 110/86 O2 Sat by Pulse 98 98 Oximetry Medical Decision Making - Lab Data Result diagrams: 12/01/20 22:24 12/01/20 21:17 Lab Results 12/01/20 12/01/20 12/01/20 Range/Units 21:17 21:20 21:30 WBC 12.5 H (3.8-10.6) k/uL RBC 1.36 L (3.80-5.40) m/uL Hgb 4.0 L* (11.4-16.0) gm/dL Hct 12.1 L* (34.0-46.0) % MCV 88.9 (80.0-100.0) fL MCH 29.5 (25.0-35.0) pg MCHC 33.2 (31.0-37.0) g/dL RDW 15.3 (11.5-15.5) % Plt Count 694 H (150-450) k/uL MPV 7.0 Neutrophils % 86 % Lymphocytes % 8 % Monocytes % 4 % Eosinophils % 2 % Basophils % 0 % Neutrophils # 10.7 H (1.3-7.7) k/uL Lymphocytes # 1.0 (1.0-4.8) k/uL Monocytes # 0.5 (0-1.0) k/uL Eosinophils # 0.2 (0-0.7) k/uL Basophils # 0.0 (0-0.2) k/uL PT (9.0-12.0) sec INR (<1.2) APTT (22.0-30.0) sec Sodium 136 L (137-145) mmol/L Potassium 4.8 (3.5-5.1) mmol/L Chloride 104 (98-107) mmol/L Carbon Dioxide 24 (22-30) mmol/L Anion Gap 8 mmol/L BUN 16 (7-17) mg/dL Creatinine 0.84 (0.52-1.04) mg/dL Est GFR (CKD-EPI)AfAm 86 (>60 ml/min/1.73 sqM) Est GFR (CKD-EPI)NonAf 74 (>60 ml/min/1.73 sqM) Glucose 166 H (74-99) mg/dL Calcium 8.9 (8.4-10.2) mg/dL Urine Color Urine Appearance (Clear) Urine pH (5.0-8.0) Ur Specific [place] (1.001-1.035) Urine Protein (Negative) Urine Glucose (UA) (Negative) Urine Ketones (Negative) Urine Blood (Negative) Urine Nitrite (Negative) Urine Bilirubin (Negative) Urine Urobilinogen (<2.0) mg/dL Ur Leukocyte Esterase (Negative) Urine RBC (0-5) /hpf Urine WBC (0-5) /hpf Ur Squamous Epith Cells (0-4) /hpf Urine Bacteria (None) /hpf Urine Mucus (None) /hpf Stool Occult Blood (Negative) Coronavirus (PCR) Not Detected (Not Detectd) Blood Type Blood Type Recheck Bld Type Recheck Status Antibody Screen Crossmatch Spec Expiration Date 12/01/20 12/01/20 12/01/20 Range/Units 22:20 22:24 22:24 WBC 12.6 H (3.8-10.6) k/uL RBC 4.40 (3.80-5.40) m/uL Hgb 13.4 D (11.4-16.0) gm/dL Hct 39.0 (34.0-46.0) % MCV 88.6 (80.0-100.0) fL MCH 30.6 (25.0-35.0) pg MCHC 34.5 (31.0-37.0) g/dL RDW 14.8 (11.5-15.5) % Plt Count 364 (150-450) k/uL MPV 7.3 Neutrophils % % Lymphocytes % % Monocytes % % Eosinophils % % Basophils % % Neutrophils # (1.3-7.7) k/uL Lymphocytes # (1.0-4.8) k/uL Monocytes # (0-1.0) k/uL Eosinophils # (0-0.7) k/uL Basophils # (0-0.2) k/uL PT 10.7 (9.0-12.0) sec INR 1.0 (<1.2) APTT 19.6 L (22.0-30.0) sec Sodium (137-145) mmol/L Potassium (3.5-5.1) mmol/L Chloride (98-107) mmol/L Carbon Dioxide (22-30) mmol/L Anion Gap mmol/L BUN (7-17) mg/dL Creatinine (0.52-1.04) mg/dL Est GFR (CKD-EPI)AfAm (>60 ml/min/1.73 sqM) Est GFR (CKD-EPI)NonAf (>60 ml/min/1.73 sqM) Glucose (74-99) mg/dL Calcium (8.4-10.2) mg/dL Urine Color Urine Appearance (Clear) Urine pH (5.0-8.0) Ur Specific [place] (1.001-1.035) Urine Protein (Negative) Urine Glucose (UA) (Negative) Urine Ketones (Negative) Urine Blood (Negative) Urine Nitrite (Negative) Urine Bilirubin (Negative) Urine Urobilinogen (<2.0) mg/dL Ur Leukocyte Esterase (Negative) Urine RBC (0-5) /hpf Urine WBC (0-5) /hpf Ur Squamous Epith Cells (0-4) /hpf Urine Bacteria (None) /hpf Urine Mucus (None) /hpf Stool Occult Blood (Negative) Coronavirus (PCR) (Not Detectd) Blood Type A Positive Blood Type Recheck A Pos Bld Type Recheck Status No Antibody Screen NEGATIVE Crossmatch See Detail Spec Expiration Date 12/04/2020 - 231912/01/20 12/01/20 Range/Units 22:24 22:57 WBC (3.8-10.6) k/uL RBC (3.80-5.40) m/uL Hgb (11.4-16.0) gm/dL Hct (34.0-46.0) % MCV (80.0-100.0) fL MCH (25.0-35.0) pg MCHC (31.0-37.0) g/dL RDW (11.5-15.5) % Plt Count (150-450) k/uL MPV Neutrophils % % Lymphocytes % % Monocytes % % Eosinophils % % Basophils % % Neutrophils # (1.3-7.7) k/uL Lymphocytes # (1.0-4.8) k/uL Monocytes # (0-1.0) k/uL Eosinophils # (0-0.7) k/uL Basophils # (0-0.2) k/uL PT (9.0-12.0) sec INR (<1.2) APTT (22.0-30.0) sec Sodium (137-145) mmol/L Potassium (3.5-5.1) mmol/L Chloride (98-107) mmol/L Carbon Dioxide (22-30) mmol/L Anion Gap mmol/L BUN (7-17) mg/dL Creatinine (0.52-1.04) mg/dL Est GFR (CKD-EPI)AfAm (>60 ml/min/1.73 sqM) Est GFR (CKD-EPI)NonAf (>60 ml/min/1.73 sqM) Glucose (74-99) mg/dL Calcium (8.4-10.2) mg/dL Urine Color Yellow Urine Appearance Cloudy H (Clear) Urine pH 6.0 (5.0-8.0) Ur Specific [place] 1.019 (1.001-1.035) Urine Protein Trace H (Negative) Urine Glucose (UA) Negative (Negative) Urine Ketones Negative (Negative) Urine Blood Trace H (Negative) Urine Nitrite Negative (Negative) Urine Bilirubin Negative (Negative) Urine Urobilinogen <2.0 (<2.0) mg/dL Ur Leukocyte Esterase Moderate H (Negative) Urine RBC 5 (0-5) /hpf Urine WBC 9 H (0-5) /hpf Ur Squamous Epith Cells 8 H (0-4) /hpf Urine Bacteria Few H (None) /hpf Urine Mucus Rare H (None) /hpf Stool Occult Blood Negative (Negative) Coronavirus (PCR) (Not Detectd) Blood Type Blood Type Recheck Bld Type Recheck Status Antibody Screen Crossmatch Spec Expiration Date Disposition Clinical Impression: Fever Disposition: HOME SELF-CARE Condition: Fair Is patient prescribed a controlled substance at d/c from ED?: No Time of Disposition: 23:50
[2020-12-01] MEDS ORDERED: PIPERACILLIN-TAZOBACTAM 3.375 GM in SODIUM CHLORIDE 0.9% 100 ML IVPB STA (22:39)
[2020-12-01] MEDS ORDERED: VANCOMYCIN IV PER PHARMACY 1 EACH MISC MISCELLANE PRN (22:39)
[2020-12-01] MEDS ORDERED: VANCOMYCIN 1,500 MG in SODIUM CHLORIDE 0.9% 250 ML IVPB ONE (22:45)
[2020-12-01 22:48] LABS: MCH 30.6 pg (25.0-35.0); MCHC 34.5 g/dL (31.0-37.0); MCV 88.6 fL (80.0-100.0); Mean Platelet Volume 7.3; Platelet Count 364 k/uL (150-450); RDW 14.8 % (11.5-15.5); WBC 12.6 k/uL (3.8-10.6)
[2020-12-01] MEDS ORDERED: NALOXONE 0.4 MG/ML 1 ML VIAL IV PRN (22:58)
[2020-12-01] MEDS ORDERED: ACETAMINOPHEN TAB 325 MG TAB PO PRN (22:58)
[2020-12-01] MEDS ORDERED: PANTOPRAZOLE 40 MG/10 ML VIAL IV SCH (23:00)
[2020-12-01] MEDS ORDERED: SODIUM CHLORIDE 0.9% 1,000 ML IV SCH (23:00)
[2020-12-01 23:08] LABS: Prothrombin Time 10.7 sec (9.0-12.0)
[2020-12-01 23:12] LABS: Appearance,Urine Cloudy (Clear); Bacteria,Urine Few /hpf; Bilirubin,Urine Negative (Negative); Blood,Urine Trace (Negative); Color,Urine Yellow; Glucose,Urine (UA) Negative (Negative); Ketones,Urine Negative (Negative); Leukocyte Esterase,Urine Moderate (Negative); Mucus,Urine Rare /hpf; Nitrite,Urine Negative (Negative); Protein,Urine Trace (Negative); RBC,Urine 5 /hpf (0-5); Specific Gravity,Urine 1.019 (1.001-1.035); Squamous Epithelial Cell,Urine 8 /hpf (0-4); Urobilinogen,Urine <2.0 mg/dL (<2.0); WBC,Urine 9 /hpf (0-5)
[2020-12-01 23:20] LABS: Partial Thromboplastin Time 19.6 sec (22.0-30.0)
[2020-12-01 23:21] LABS: HGB 13.4 gm/dL (11.4-16.0)
--- NOTE | 2020-12-01 23:32 | CT ---
EXAMINATION TYPE: CT brain wo con DATE OF EXAM: 12/01/2020 COMPARISON: None HISTORY: ams. fall/weakness. no prior on PACS CT DLP: 1070.4 mGycm Automated exposure control for dose reduction was used. Images obtained of the brain with no contrast. Ventricles have fairly normal size. There is no mass effect nor midline shift. There is no sign of in tracranial hemorrhage. Calvarium is intact. There is mild ethmoid sinus mucosal thickening. Skull bas e is intact. There is normal aeration of the mastoid sinuses. IMPRESSION: Head CT scan appears normal for age. Ethmoid and left side maxillary sinusitis noted.
[2020-12-02 00:01] VITALS: BP 115/60; PULSE 115; RESP 18; TEMP 100.7
== END 2020-12-02 01:01 | disposition home or self-care (01) ==
LOC: EC 20:46 → UNDOADMIN 22:58 → 2SICU 22:58 → EC 12-02 01:01
DX: R50.9 Fever, unspecified (principal); E11.9 Type 2 diabetes mellitus without complications; M19.90 Unspecified osteoarthritis, unspecified site; F41.9 Anxiety disorder, unspecified; F32.9 Major depressive disorder, single episode, unspecified; Z87.891 Personal history of nicotine dependence
CPT/HCPCS: 36415; 93005; 86900; 86901; 80048; 83605; 85025; 85027; 85610; 85730; 86850; 82272; 81001; 87040; 87635; 71045; 70450; 99285; 96365; 96375; 96361; J2543; C9113; 86920

== ENCOUNTER 2023-08-08 07:30 | Inpatient (IN) | payer BC, MEDICARE ==
[2023-08-08] MEDS ORDERED: ACETAMINOPHEN TAB 500 MG TAB PO STA ×2 (08:04→17:45)
[2023-08-08] MEDS ORDERED: SODIUM CHLORIDE 0.9% 1,000 ML IV STA (08:04)
--- NOTE | 2023-08-08 08:31 | ED ---
General Adult HPI - General Source: EMS Mode of arrival: EMS Limitations: altered mental status <Jagdeep Dumont - Last Filed: 08/17/23 20:30> <Lion Lloyd - Last Filed: 08/19/23 19:31> - General Chief complaint: Altered Mental Status Stated complaint: AMS,Weakness Time Seen by Provider: 08/08/23 08:03 - History of Present Illness Initial comments: Dictation was produced using [employer] dictation software. please excuse any grammatical, word or spelling errors. Chief Complaint: 68-year-old male presents emergency department with fever History of Present Illness: 68-year-old female should run to the emergency Department from home by EMS. According to EMS patient rolled off the couch onto the floor approximately 8 PM last night was unable to get up. Patient allegedly has been weak. Patient complaining of sore throat and rhinorrhea. Denies any abdominal pain. Currently EMS patient was altered . EMS states patient is a and O 2 when she is at baseline and O 4. Patient has any dysuria. No cough. No chest pain or abdominal pain. Denies any rash. She is not sure she's been around anybody who is sick The ROS documented in this emergency department record has been reviewed and confirmed by me. Those systems with pertinent positive or negative responses have been documented in the HPI. All other systems are other negative and/or noncontributory. (Jagdeep Dumont) - Related Data Home Medications Medication Instructions Recorded Confirmed ALPRAZolam [Xanax] 1 mg PO TID PRN 05/26/19 08/08/23 metFORMIN HCL [Glucophage] 500 mg PO BID 05/26/19 08/08/23 traZODone HCL 200 mg PO HS 05/26/19 08/08/23 Rosuvastatin [Crestor] 10 mg PO DAILY 08/08/23 08/08/23 Previous Rx's Medication Instructions Recorded Albuterol Inhaler [Ventolin Hfa 4 puff INHALATION Q4H PRN #1 each 08/12/23 Inhaler] Budesonide/Formoterol Fumarate 1 puff INHALATION BID #1 each 08/12/23 [Symbicort 80-4.5 Mcg Inhaler] Loratadine-Pseudoeph 5-120 mg 1 each PO Q12HR #10 tab 08/12/23 [Claritin-D 12 Hour] predniSONE 10 mg PO DAILY #30 tab 08/12/23 Allergies Allergy/AdvReac Type Severity Reaction Status Date / Time nickel Allergy Unknown Itching, Verified 08/08/23 10:36 Redness, Dermatitis H2 INHIBITORS Allergy Severe Hives Uncoded 12/01/20 21:52 SURGICAL KAYCE Allergy Unknown Itching, Uncoded 12/01/20 21:52 Redness, Dermatitis Review of Systems ROS Other: All systems not noted in ROS Statement are negative. <Jagdeep Dumont - Last Filed: 08/17/23 20:30> ROS Other: All systems not noted in ROS Statement are negative. <Lion Lloyd - Last Filed: 08/19/23 19:31> ROS Statement: Those systems with pertinent positive or pertinent negative responses have been documented in the HPI. Past Medical History Past Medical History: Diabetes Mellitus, Hypertension, Osteoarthritis (OA), Skin Disorder Additional Past Medical History / Comment(s): Hx gastric ulcer., psoriasis., pain right hip History of Any Multi-Drug Resistant Organisms: None Reported Past Surgical History: Section Additional Past Surgical History / Comment(s): x3 Past Anesthesia/Blood Transfusion Reactions: No Reported Reaction, Motion Sickness Past Psychological History: Anxiety, Depression Smoking Status: Former smoker Past Alcohol Use History: None Reported Past Drug Use History: None Reported - Past Family History Father Family Medical History: Deep Vein Thrombosis (DVT) Sister(s) Family Medical History: Cancer <Jagdeep Dumont - Last Filed: 08/17/23 20:30> General Exam Limitations: altered mental status <Jagdeep Dumont - Last Filed: 08/17/23 20:30> - General Exam Comments Initial Comments: PHYSICAL EXAM: General Impression: Alert and oriented x3, not in acute distress HEENT: Normocephalic atraumatic, extra-ocular movements intact, pupils equal and reactive to light bilaterally, mucous membranes moist. Cardiovascular: Heart regular rate and rhythm Chest: Able to complete full sentences, no retractions, no tachypnea Abdomen: abdomen soft, non-tender, non-distended, no organomegaly Musculoskeletal: Pulses present and equal in all extremities, no peripheral edema Motor: no focal deficits noted Neurological: CN II-XII grossly intact, no focal motor or sensory deficits noted Skin: Intact with no visualized rashes Psych: Normal affect and mood (Jagdeep Dumont) Course Vital Signs 08/08/23 08/08/23 08/08/23 07:51 07:59 10:05 Temperature 101.2 F H Pulse Rate 124 H 122 H Respiratory 28 H 26 H 28 H Rate Blood Pressure 157/91 168/94 O2 Sat by Pulse 94 L 96 Oximetry 08/08/23 08/08/23 08/08/23 14:03 14:56 16:42 Temperature 100.0 F H 103.1 F H 101.0 F H Pulse Rate 116 H 120 H Respiratory 20 22 Rate Blood Pressure 111/67 147/75 O2 Sat by Pulse 94 L 93 L Oximetry 08/08/23 08/08/23 18:00 21:08 Temperature 99.7 F H 99.1 F Pulse Rate 112 H 107 H Respiratory 20 20 Rate Blood Pressure 116/65 113/61 O2 Sat by Pulse 96 96 Oximetry EKG Findings - EKG Comments: EKG Findings:: My EKG interpretation: Ventricular rate 124, sinus tachycardia,. 152, QRS 75, QTc 387. No VA prolongation, no QTC prolongation, no ST or T-wave changes noted. . Overall, this EKG is unremarkable <Jagdeep Dumont - Last Filed: 08/17/23 20:30> Medical Decision Making - Lab Data Result diagrams: 08/08/23 08:04 08/08/23 08:04 <Jagdeep Dumont - Last Filed: 08/17/23 20:30> - Lab Data Result diagrams: 08/08/23 08:04 08/08/23 08:04 <Lion Lloyd - Last Filed: 08/19/23 19:31> - Medical Decision Making Was pt. sent in by a medical professional or institution (, PA, RN CASE MANAGER, urgent care, hospital, or prison...) When possible be specific @ -No Did you speak to anyone other than the patient for history (EMS, parent, family, police, friend...)? What history was obtained from this source @ -No Did you review nursing and triage notes (agree or disagree)? Why? @ -I reviewed and agree with nursing and triage notes Were old charts reviewed (outside hosp., previous admission, EMS record, old EKG, old radiological studies, urgent care reports/EKG's, prison records)? Report findings @ -No old charts were reviewed Differential Diagnosis (chest pain, altered mental status, abdominal pain women, abdominal pain men, vaginal bleeding, musculoskeletal, weakness, fever, dyspnea, syncope, headache, dizziness, GI bleed, back pain, seizure, CVA, palpatations, mental health)? @ -Differential Fever: Pneumonia, viral URI, endocarditis, myocarditis, pericarditis, otitis, sinusi tis, peritonsillar Abscess, retropharyngeal Abscess, epiglottitis, peritonitis, appendicitis, Digna cystitis, diverticulitis, hepatitis, colitis, UTI, PID, TOA, pyelonephritis, prostatitis, epididymitis, meningitis, encephalitis, pulmonary embolism, CVA, thyroid storm, pancreatitis, adrenal crisis, cavernous sinus thrombosis, this is not meant to be an all-inclusive list. EKG interpreted by me (3pts min.). @ -See above X-rays interpreted by me (1pt min.). @ -Chest x-ray shows is no acute processes CT interpreted by me (1pt min.). @ -None done U/S interpreted by me (1pt. min.). @ -None done What testing was considered but not performed or refused? (CT, X-rays, U/S, labs)? Why? @ -None What meds were considered but not given or refused? Why? @ -None Did you discuss the management of the patient with other professionals (prof essionals i.e. , PA, RN CASE MANAGER, lab, RT, psych nurse, social worker clinical, taper printed circuit layout, teacher, patient safety officer, disease case manager)? Give summary @ -No Was smoking cessation discussed for >3mins.? @ -No Was critical care preformed (if so, how long)? @ -No Were there social determinants of health that impacted care today? How? (Homelessness, low income, unemployed, alcoholism, drug addiction, transportat ion, low edu. Level, literacy, decrease access to med. care, long-term, rehab)? @ -No Was there de-escalation of care discussed even if they declined (Discuss DNR or withdrawal of care, Hospice)? DNR status @ -No What co-morbidities impacted this encounter? (DM, HTN, Smoking, COPD, CAD, Cancer, CVA, ARF, Chemo, Hep., AIDS, mental health diagnosis, sleep apnea, morbid obesity)? @ -None Was patient admitted / discharged? Hospital course, mention meds given and route, prescriptions, significant lab abnormalities, going to OR and other pertinent info. @ -68-year-old female presents emergency department for acute weakness fever and altered mental status. Vital signs upon arrival shows pyrexia 11.2, heart rate 124 respiratory 28, 94% on room air, blood pressure is normal. Laboratory evaluation obtained. Leukocytosis of 18.1. Metabolic panel within acceptable limits. Urinalysis negative. Patient is coronal virus positive. D-dimer is elevated at 1.81. Patient given antipyretics however still tachycardic. CT angiography ordered. Patient is signed out to Dr. Lloyd at 3:00 PM Undiagnosed new problem with uncertain prognosis? @ -No Drug Therapy requiring intensive monitoring for toxicity (Heparin, Nitro, Insulin, Cardizem)? @ -No Were any procedures done? @ -No Diagnosis/symptom? Acute, or Chronic, or Acute on Chronic? Uncomplicated (without systemic symptoms) or Complicated (systemic symptoms)? @ -Generalized weakness, COVID-19 (Jagdeep Dumont) Was patient admitted / discharged? Hospital course, mention meds given and route, prescriptions, significant lab abnormalities, going to OR and other pertinent info. @ -[Received this patient as sign out pending the computed tomography scan. On the CAT scan there does not appear to be pulmonary embolism evident. The patient is reevaluated. She does appear to be acutely delirious. She is disoriented to place and date. In light of this will admit to have further fluid and antipyretics and to ensure that the acute delirium does resolve Undiagnosed new problem with uncertain prognosis? @ -[No] Drug Therapy requiring intensive monitoring for toxicity (Heparin, Nitro, Insulin, Cardizem)? @ -[No] Were any procedures done? @ -[No] Diagnosis/symptom? @ -[Acute Covid-19 infection Acute delirium Acute, or Chronic, or Acute on Chronic? @ -[Acute Uncomplicated (without systemic symptoms) or Complicated (systemic symptoms)? @ -[The Covid is complicated by acute delirium Side effects of treatment? @ -[No] Exacerbation, Progression, or Severe Exacerbation? @ -[No] Poses a threat to life or bodily function? How? (Chest pain, [place], NM, pneumonia, PE, COPD, DKA, ARF, appy, cholecystitis, CVA, Diverticulitis, Homicidal, Suicidal, threat to staff... and all critical care pts) @ -[This there is some risk to life associated with Covid infection (Lion Lloyd) - Lab Data Lab Results 08/08/23 08/08/23 08/08/23 Range/Units 08:04 08:04 08:04 WBC 18.1 H (3.8-10.6) k/uL RBC 4.65 (3.80-5.40) m/uL Hgb 14.1 (11.4-16.0) gm/dL Hct 41.5 (34.0-46.0) % MCV 89.3 (80.0-100.0) fL MCH 30.2 (25.0-35.0) pg MCHC 33.8 (31.0-37.0) g/dL RDW 13.3 (11.5-15.5) % Plt Count 296 (150-450) k/uL MPV 8.0 Neutrophils % 92 % Lymphocytes % 3 % Monocytes % 4 % Eosinophils % 1 % Basophils % 0 % Neutrophils # 16.7 H (1.3-7.7) k/uL Lymphocytes # 0.5 L (1.0-4.8) k/uL Monocytes # 0.7 (0-1.0) k/uL Eosinophils # 0.1 (0-0.7) k/uL Basophils # 0.0 (0-0.2) k/uL D-Dimer (<0.60) mg/L FEU Sodium 134 L (137-145) mmol/L Potassium 3.8 (3.5-5.1) mmol/L Chloride 103 (98-107) mmol/L Carbon Dioxide 17 L (22-30) mmol/L Anion Gap 14 mmol/L BUN 11 (7-17) mg/dL Creatinine 0.69 (0.52-1.04) mg/dL Est GFR (CKD-EPI)AfAm >90 (>60 ml/min/1.73 sqM) Est GFR (CKD-EPI)NonAf >90 (>60 ml/min/1.73 sqM) Glucose 162 H (74-99) mg/dL Plasma Lactic Acid Jesús 1.0 (0.7-2.0) mmol/L Calcium 9.0 (8.4-10.2) mg/dL Total Bilirubin 0.7 (0.2-1.3) mg/dL AST 64 H (14-36) U/L ALT 29 (4-34) U/L Alkaline Phosphatase 81 (38-126) U/L Troponin I (0.000-0.034) ng/mL Total Protein 7.5 (6.3-8.2) g/dL Albumin 4.2 (3.5-5.0) g/dL Urine Color Urine Appearance (Clear) Urine pH (5.0-8.0) Ur Specific [place] (1.001-1.035) Urine Protein (Negative) Urine Glucose (UA) (Negative) Urine Ketones (Negative) Urine Blood (Negative) Urine Nitrite (Negative) Urine Bilirubin (Negative) Urine Urobilinogen (<2.0) mg/dL Ur Leukocyte Esterase (Negative) Urine RBC (0-5) /hpf Urine WBC (0-5) /hpf Ur Squamous Epith Cells (0-4) /hpf Urine Bacteria (None) /hpf Hyaline Casts (0-2) /lpf Granular Casts (0) /lpf Urine Mucus (None) /hpf Urine Yeast (Budding) (None) /hpf Influenza Type A (PCR) (Not Detectd) Influenza Type B (PCR) (Not Detectd) RSV (PCR) (Not Detectd) SARS-CoV-2 (PCR) (Not Detectd) 08/08/23 08/08/23 08/08/23 Range/Units 08:09 09:34 09:34 WBC (3.8-10.6) k/uL RBC (3.80-5.40) m/uL Hgb (11.4-16.0) gm/dL Hct (34.0-46.0) % MCV (80.0-100.0) fL MCH (25.0-35.0) pg MCHC (31.0-37.0) g/dL RDW (11.5-15.5) % Plt Count (150-450) k/uL MPV Neutrophils % % Lymphocytes % % Monocytes % % Eosinophils % % Basophils % % Neutrophils # (1.3-7.7) k/uL Lymphocytes # (1.0-4.8) k/uL Monocytes # (0-1.0) k/uL Eosinophils # (0-0.7) k/uL Basophils # (0-0.2) k/uL D-Dimer (<0.60) mg/L FEU Sodium (137-145) mmol/L Potassium (3.5-5.1) mmol/L Chloride (98-107) mmol/L Carbon Dioxide (22-30) mmol/L Anion Gap mmol/L BUN (7-17) mg/dL Creatinine (0.52-1.04) mg/dL Est GFR (CKD-EPI)AfAm (>60 ml/min/1.73 sqM) Est GFR (CKD-EPI)NonAf (>60 ml/min/1.73 sqM) Glucose (74-99) mg/dL Plasma Lactic Acid Jesús (0.7-2.0) mmol/L Calcium (8.4-10.2) mg/dL Total Bilirubin (0.2-1.3) mg/dL AST (14-36) U/L ALT (4-34) U/L Alkaline Phosphatase (38-126) U/L Troponin I 0.024 (0.000-0.034) ng/mL Total Protein (6.3-8.2) g/dL Albumin (3.5-5.0) g/dL Urine Color Yellow Urine Appearance Cloudy H (Clear) Urine pH 5.5 (5.0-8.0) Ur Specific [place] 1.023 (1.001-1.035) Urine Protein 2+ H (Negative) Urine Glucose (UA) Trace H (Negative) Urine Ketones 3+ H (Negative) Urine Blood Moderate H (Negative) Urine Nitrite Negative (Negative) Urine Bilirubin Negative (Negative) Urine Urobilinogen <2.0 (<2.0) mg/dL Ur Leukocyte Esterase Negative (Negative) Urine RBC 2 (0-5) /hpf Urine WBC 3 (0-5) /hpf Ur Squamous Epith Cells 1 (0-4) /hpf Urine Bacteria Rare H (None) /hpf Hyaline Casts 4 H (0-2) /lpf Granular Casts 1 (0) /lpf Urine Mucus Moderate H (None) /hpf Urine Yeast (Budding) Rare H (None) /hpf Influenza Type A (PCR) Not Detected (Not Detectd) Influenza Type B (PCR) Not Detected (Not Detectd) RSV (PCR) Not Detected (Not Detectd) SARS-CoV-2 (PCR) Detected A (Not Detectd) 08/08/23 Range/Units 13:51 WBC (3.8-10.6) k/uL RBC (3.80-5.40) m/uL Hgb (11.4-16.0) gm/dL Hct (34.0-46.0) % MCV (80.0-100.0) fL MCH (25.0-35.0) pg MCHC (31.0-37.0) g/dL RDW (11.5-15.5) % Plt Count (150-450) k/uL MPV Neutrophils % % Lymphocytes % % Monocytes % % Eosinophils % % Basophils % % Neutrophils # (1.3-7.7) k/uL Lymphocytes # (1.0-4.8) k/uL Monocytes # (0-1.0) k/uL Eosinophils # (0-0.7) k/uL Basophils # (0-0.2) k/uL D-Dimer 1.81 H (<0.60) mg/L FEU Sodium (137-145) mmol/L Potassium (3.5-5.1) mmol/L Chloride (98-107) mmol/L Carbon Dioxide (22-30) mmol/L Anion Gap mmol/L BUN (7-17) mg/dL Creatinine (0.52-1.04) mg/dL Est GFR (CKD-EPI)AfAm (>60 ml/min/1.73 sqM) Est GFR (CKD-EPI)NonAf (>60 ml/min/1.73 sqM) Glucose (74-99) mg/dL Plasma Lactic Acid Jesús (0.7-2.0) mmol/L Calcium (8.4-10.2) mg/dL Total Bilirubin (0.2-1.3) mg/dL AST (14-36) U/L ALT (4-34) U/L Alkaline Phosphatase (38-126) U/L Troponin I (0.000-0.034) ng/mL Total Protein (6.3-8.2) g/dL Albumin (3.5-5.0) g/dL Urine Color Urine Appearance (Clear) Urine pH (5.0-8.0) Ur Specific [place] (1.001-1.035) Urine Protein (Negative) Urine Glucose (UA) (Negative) Urine Ketones (Negative) Urine Blood (Negative) Urine Nitrite (Negative) Urine Bilirubin (Negative) Urine Urobilinogen (<2.0) mg/dL Ur Leukocyte Esterase (Negative) Urine RBC (0-5) /hpf Urine WBC (0-5) /hpf Ur Squamous Epith Cells (0-4) /hpf Urine Bacteria (None) /hpf Hyaline Casts (0-2) /lpf Granular Casts (0) /lpf Urine Mucus (None) /hpf Urine Yeast (Budding) (None) /hpf Influenza Type A (PCR) (Not Detectd) Influenza Type B (PCR) (Not Detectd) RSV (PCR) (Not Detectd) SARS-CoV-2 (PCR) (Not Detectd) Disposition <Jagdeep Dumont - Last Filed: 08/17/23 20:30> Is patient prescribed a controlled substance at d/c from ED?: No <Lion Lloyd - Last Filed: 08/19/23 19:31> Clinical Impression: Fever, COVID-19, Fall, Delirium, Pulmonary embolism Disposition: ADMITTED IP TO THIS HOSP
[2023-08-08 12:42] LABS: Appearance,Urine Cloudy (Clear); Bacteria,Urine Rare /hpf; Bilirubin,Urine Negative (Negative); Blood,Urine Moderate (Negative); Budding Yeast,Urine Rare /hpf; Color,Urine Yellow; Glucose,Urine (UA) Trace (Negative); Granular Casts,Urine 1 /lpf (0); Hyaline Casts,Urine 4 /lpf (0-2); Ketones,Urine 3+ (Negative); Leukocyte Esterase,Urine Negative (Negative); Mucus,Urine Moderate /hpf; Nitrite,Urine Negative (Negative); PH, Urine 5.5 (5.0-8.0); Protein,Urine 2+ (Negative); RBC,Urine 2 /hpf (0-5); Specific Gravity,Urine 1.023 (1.001-1.035); Squamous Epithelial Cell,Urine 1 /hpf (0-4); Urobilinogen,Urine <2.0 mg/dL (<2.0); WBC,Urine 3 /hpf (0-5)
[2023-08-08 12:44] LABS: Basophils % (A) 0 %; Eosinophils # (A) 0.1 k/uL (0-0.7); Eosinophils % (A) 1 %; HCT 41.5 % (34.0-46.0); HGB 14.1 gm/dL (11.4-16.0); Lymphocytes # (A) 0.5 k/uL (1.0-4.8); Lymphocytes % (A) 3 %; MCH 30.2 pg (25.0-35.0); MCHC 33.8 g/dL (31.0-37.0); MCV 89.3 fL (80.0-100.0); Monocytes # (A) 0.7 k/uL (0-1.0); Monocytes % (A) 4 %; Neutrophils # (A) 16.7 k/uL (1.3-7.7); Neutrophils % (A) 92 %; Platelet Count 296 k/uL (150-450); RBC 4.65 m/uL (3.80-5.40); RDW 13.3 % (11.5-15.5); WBC 18.1 k/uL (3.8-10.6)
[2023-08-08 13:12] LABS: ALT 29 U/L (4-34); AST 64 U/L (14-36); African American GFR (CKD) >90 (>60 ml/min/1.73 sqM); Albumin 4.2 g/dL (3.5-5.0); Alkaline Phosphatase 81 U/L (38-126); Anion Gap 14 mmol/L; Blood Urea Nitrogen 11 mg/dL (7-17); Carbon Dioxide 17 mmol/L (22-30); Chloride 103 mmol/L (98-107); Glucose 162 mg/dL (74-99); Non-African American GFR(CKD) >90 (>60 ml/min/1.73 sqM); Potassium 3.8 mmol/L (3.5-5.1); Sodium 134 mmol/L (137-145); Total Bilirubin 0.7 mg/dL (0.2-1.3); Total Protein 7.5 g/dL (6.3-8.2)
--- NOTE | 2023-08-08 13:44 | XR ---
EXAMINATION TYPE: XR chest 2V DATE OF EXAM: 08/08/2023 1:32 PM CLINICAL INDICATION:Female, 68 years old with history of covid; [facility] COMPARISON: Chest radiographs from 12/01/2020. TECHNIQUE: XR chest 2V Frontal and lateral views of the chest. FINDINGS: Lungs/Pleura: There is no evidence of pleural effusion, focal consolidation, or pneumothorax. Pulmonary vascularity: Unremarkable. Heart/mediastinum: Cardiomediastinal silhouette is unremarkable. Musculoskeletal: No acute osseous pathology. Other findings: None IMPRESSION: No acute cardiopulmonary disease/process. Stable exam.
[2023-08-08] MEDS ORDERED: IBUPROFEN 800 MG TAB PO STA (14:59)
--- NOTE | 2023-08-08 16:25 | CT ---
EXAMINATION TYPE: CT angio chest DATE OF EXAM: 08/08/2023 4:08 PM COMPARISON: None HISTORY: positive D-dimer, SOB, COVID + CT DLP: 362.5 mGycm Automated exposure control for dose reduction was used. CONTRAST: CTA scan of the thorax is performed with IV Contrast, patient injected with 60ml mL of Isovue 300, pu lmonary embolism protocol. 3-D postprocessing was performed. FINDINGS: LUNGS: The lungs are grossly clear, there is no concerning parenchymal mass or nodule identified. T here is no pleural effusion or pneumothorax seen. The tracheobronchial tree is patent. MEDIASTINUM: There is satisfactory enhancement of the pulmonary artery and its branches, there is no CT evidence for pulmonary embolism. There are no greater than 1 cm hilar or mediastinal lymph nodes. No pericardial effusion is seen. OTHER: No additional significant abnormality is seen. IMPRESSION: 1. NO ACUTE CARDIOPULMONARY DISEASE. 2. NO EVIDENCE OF PULMONARY EMBOLISM.
[2023-08-08] MEDS ORDERED: NALOXONE 0.4 MG/ML 1 ML VIAL IV PRN (19:40)
[2023-08-08] MEDS ORDERED: IBUPROFEN 400 MG TAB PO PRN (19:40)
[2023-08-08] MEDS ORDERED: MAG HYDROX/AL HYDROX/SIMETH 30 ML CUP PO PRN (19:40)
[2023-08-08] MEDS: SODIUM CHLORIDE 0.9% 1,000 ML IV SCH (21:11)
[2023-08-08] MEDS: FAMOTIDINE 20 MG TAB PO SCH (21:11)
[2023-08-08] MEDS: ENOXAPARIN 40 MG/0.4 ML SYRINGE SQ SCH (22:15)
[2023-08-08] MEDS: traZODone HCL 100 MG TAB PO SCH (22:15)
[2023-08-09] MEDS: ACETAMINOPHEN TAB 325 MG TAB PO PRN ×3 (03:02→17:48)
[2023-08-09] MEDS: SODIUM CHLORIDE 0.9% 1,000 ML IV SCH (09:08)
[2023-08-09] MEDS: ENOXAPARIN 40 MG/0.4 ML SYRINGE SQ SCH (10:08)
[2023-08-09] MEDS: ATORVASTATIN 20 MG TAB PO SCH (10:08)
[2023-08-09] MEDS: FAMOTIDINE 20 MG TAB PO SCH (10:08)
[2023-08-09] MEDS: ALPRAZolam 1 MG TAB PO PRN (10:19)
[2023-08-09] MEDS ORDERED: DEXTROSE 50% SYRINGE 50 ML IVP PRN ×2 (10:21)
[2023-08-09] MEDS: dexAMETHasone 2 MG TAB PO SCH (11:58)
[2023-08-09 12:12] LABS: Glucose,Whole Blood 111 mg/dL (70-110)
[2023-08-09] MEDS: ALBUTEROL HFA INHALER INHALATION SCH ×4 (12:25→23:50)
[2023-08-09] MEDS: INSULIN ASPART (NovoLOG) 100 UNIT/ML VIAL SQ SCH ×2 (13:14→17:48)
[2023-08-09 17:17] LABS: Glucose,Whole Blood 184 mg/dL (70-110)
--- NOTE | 2023-08-09 19:42 | P.CNPUL ---
History of Present Illness Consult date: 08/09/23 Chief complaint: COVID 19 History of present illness: This is a 68-year-old female patient was currently admitted for Covid 19 infection. The patient was apparently very weak at home and her symptoms started approximately 4 days ago, the day after [place]. She has been vaccinated in the past and she stopped vaccination after the first boosted and the patient was experiencing side effects. This is only in first infection with Covid 19. The patient had diminished appetite, feeling weak, body aches, she also reported some increased cough and congestion. No nausea. No vomiting. No abdominal pain. Appetite is quite poor. No focal neurological deficits and intact. She confirmed positive for Covid 19 in emergency department and the patient was started on Decadron. Noted the patient was febrile in the emergency room with a T-max of 101.2. She was also tachycardic and somewhat dehydrated. She was started on IV fluids. The started at 18.1 with a hemoglobin of 14.4 and a platelet count of 296. Sodium is at 134 bicarb of 17 and a BUN of 11 with a creatinine of 0.6 and a glucose of 162. LFTs are within normal limits. The rest of the viral screen was negative with exception of Covid 19. Chest x-ray showed no acute cardiopulmonary abnormalities. A computed tomography scan of the chest showed no evidence of any pulmonary embolism or pneumonia. The patient is not hypoxic. She is on Decadron. He is on normal saline at rate of 75 mL an hour. She is receiving Tylenol for fever and pain. Comorbid conditions include diabetes mellitus and hyperlipidemia. Currently on 2 L O2 nasal cannula with a pulse ox of 96%. Review of Systems Constitutional: Reports fatigue, Reports fever, Reports weakness Eyes: denies as per HPI, denies blurred vision, denies bulging eye, denies decreased vision, denies diplopia, denies discharge, denies dry eye, denies irr itation, denies itching, denies pain, denies photophobia, denies loss of peripheral vision, denies loss of vision, denies tunnel vision/blind spots Ears: deny: decreased hearing, ear discharge, earache, tinnitus Ears, nose, mouth and throat: Reports as per HPI Breasts: absent: as per HPI, change in shape, gynecomastia, masses, nipple discharge, pain, skin changes, swelling Cardiovascular: Reports as per HPI Respiratory: Reports congestion, Reports cough, Reports dyspnea, Reports wheezing Genitourinary: Reports as per HPI Menstruation: Reports as per HPI Musculoskeletal: Reports as per HPI Musculoskeletal: absent: ankle pain, ankle stiffness, ankle swelling Neurological: Reports as per HPI, Reports confusion Psychiatric: Reports as per HPI Endocrine: Reports as per HPI Hematologic/Lymphatic: Reports as per HPI Allergic/Immunologic: Reports as per HPI Past Medical History Past Medical History: Diabetes Mellitus, Hypertension, Osteoarthritis (OA), Skin Disorder Additional Past Medical History / Comment(s): Hx gastric ulcer., psoriasis., pain right hip History of Any Multi-Drug Resistant Organisms: None Reported Past Surgical History: Section Additional Past Surgical History / Comment(s): x3 Past Anesthesia/Blood Transfusion Reactions: No Reported Reaction, Motion Sickness Past Psychological History: Anxiety, Depression Smoking Status: Former smoker Past Alcohol Use History: None Reported Additional Past Alcohol Use History / Comment(s): PATIENT VAPES FOR THE LAST 6 YEARS, QUIT CIGARETTES 6 YRS AGO, HX OF 1 1/2 PPD., STARTED SMOKING AGE 14. Past Drug Use History: None Reported - Past Family History Father Family Medical History: Deep Vein Thrombosis (DVT) Sister(s) Family Medical History: Cancer Medications and Allergies Home Medications Medication Instructions Recorded Confirmed Type ALPRAZolam [Xanax] 1 mg PO TID PRN 05/26/19 08/08/23 History metFORMIN HCL [Glucophage] 500 mg PO BID 05/26/19 08/08/23 History traZODone HCL 200 mg PO HS 05/26/19 08/08/23 History Rosuvastatin [Crestor] 10 mg PO DAILY 08/08/23 08/08/23 History Allergies Allergy/AdvReac Type Severity Reaction Status Date / Time nickel Allergy Unknown Itching, Verified 08/08/23 10:36 Redness, Dermatitis H2 INHIBITORS Allergy Severe Hives Uncoded 12/01/20 21:52 SURGICAL KAYCE Allergy Unknown Itching, Uncoded 12/01/20 21:52 Redness, Dermatitis Physical Exam Vitals: Vital Signs Temp Pulse Pulse Resp BP BP Pulse Ox 08/09/23 12:26 96 08/09/23 07:00 98.3 F 104 H 20 154/77 95 08/09/23 02:00 99.5 F 118 H 16 134/69 95 08/08/23 22:56 99.1 F 114 H 16 153/79 92 L 08/08/23 21:08 99.1 F 107 H 20 113/61 96 08/08/23 18:00 99.7 F H 112 H 20 116/65 96 08/08/23 16:42 101.0 F H 120 H 22 147/75 93 L Intake and Output 08/09/23 08/09/23 08/09/23 06:59 14:59 22:59 Output Total 350 Balance -350 Output: Urine 350 Other: Weight 86.183 kg Gen. appearance the patient is sick looking inches, comfortable hemodynamically stable. No respiratory distress. Body mass index is 35.9 Head exam was generally normal. There was no scleral icterus or corneal arcus. Mucous membranes were moist. Neck was supple and without jugular venous distension, thyromegaly, or carotid bruits. Carotids were easily palpable bilaterally. There was no adenopathy. Lungs sounds are diminished and the clear. The patient has some scattered cough and during the examination. Cardiac exam revealed the PMI to be normally situated and sized. The rhythm was regular and no extrasystoles were noted during several minutes of auscultation. The first and second heart sounds were normal and physiologic splitting of the second heart sound was noted. There were no murmurs, rubs, clicks, or gallops. Abdominal exam revealed normal bowel sounds. The abdomen was soft, non-tender, and without masses, organomegaly, or appreciable enlargement of the abdominal aorta. Examination of the extremities revealed easily palpable radial, femoral and ped al pulses. There was no cyanosis, clubbing or edema. Examination of the skin revealed no evidence of significant rashes, suspicious appearing nevi or other concerning lesions. Neurologically, the patient is awake and alert and the patient does not have any focal neurological deficit. Cranial nerves are essentially intact. Results - Laboratory Findings CBC and BMP: 08/08/23 08:04 08/08/23 08:04 PT/INR, D-dimer D-Dimer 1.81 mg/L FEU (<0.60) H 08/08/23 13:51 Abnormal lab findings: Abnormal Labs 08/08/23 08/08/23 08/08/23 08:04 08:04 09:34 WBC 18.1 H Neutrophils # 16.7 H Lymphocytes # 0.5 L D-Dimer Sodium 134 L Carbon Dioxide 17 L Glucose 162 H POC Glucose (mg/dL) AST 64 H Urine Appearance Urine Protein Urine Glucose (UA) Urine Ketones Urine Blood Urine Bacteria Hyaline Casts Urine Mucus Urine Yeast (Budding) SARS-CoV-2 (PCR) Detected A 08/08/23 08/08/23 08/09/23 09:34 13:51 12:10 WBC Neutrophils # Lymphocytes # D-Dimer 1.81 H Sodium Carbon Dioxide Glucose POC Glucose (mg/dL) 111 H AST Urine Appearance Cloudy H Urine Protein 2+ H Urine Glucose (UA) Trace H Urine Ketones 3+ H Urine Blood Moderate H Urine Bacteria Rare H Hyaline Casts 4 H Urine Mucus Moderate H Urine Yeast (Budding) Rare H SARS-CoV-2 (PCR) - Diagnostic Findings Chest x-ray: image reviewed CT scan - chest: image reviewed Assessment and Plan Plan: Acute Covid 19 infection. Previously vaccinated with a single booster shot. Symptoms started approximately 4 days ago. Cough secondary to above Acute febrile illness secondary to above Mild leukocytosis Dehydration and intravascular depletion, currently on IV fluids Altered mentation, recovered and the mental status is normal without any focal neurological deficits Diabetes mellitus type 2 Hypertension Hyperlipidemia Plan IV fluids with saline at rate of 75 Decadron per protocol, 6 mg on a daily basis Lovenox for DVT prophylaxis 40 mg subcu daily Check pro calcitonin level Check LDH and CRP CTA of the chest showed no evidence of any pulmonary embolism or pneumonia Resume all medications Tylenol for fever Vitamin supplements We'll continue to follow
--- NOTE | 2023-08-09 20:46 | P.HPIM ---
History of Present Illness H&P Date: 08/09/23 Chief Complaint: Feeling sick Pleasant 68-year-old patient is an 68-year-old patient follows with Jolie Ramirez Chronic stable medical conditions include diabetes mellitus, hypertension, osteoarthritis, gastric ulcer, psoriasis. 3 days patient being feeling rather sick. Cough. No phlegm. Fevers. Very short of breath. Aching all congested chest poor appetite. Tired rundown. Patient of Dr. Abi CHUNGID-19 positive. No diarrhea. No change in mental status. at the bedside with patient appears rather sick. During the history taking keep dozing off. Review of systems: GEN.: Fever chills decreased appetite EYES: None HEENT: None NECK: None RESPIRATORY: As above CARDIOVASCULAR: None GASTROINTESTINAL: None GENITOURINARY: None MUSCULOSKELETAL: Some joint pains LYMPHATICS: None HEMATOLOGICAL: None PSYCHIATRY: None NEUROLOGICAL: None. Social history: Patient smoked a pack a day for close to 40 years stopped about 6 years ago. Currently vaping. . Physical examination: VITAL SIGNS: T-max 103.1, 120, 22, 147 with 75, 93% on room air GENERAL: BMI 35.9, laying in bed rather tired some audible chest congestion. EYES: Pupils equal. Conjunctiva normal. HEENT: External appearance of nose and ears normal, oral cavity grossly normal. NECK: JVD not raised; masses not palpable. HEART: First and second heart sounds are normal; no edema. LUNGS: Respiratory rate crease, some scattered crackles. ABDOMEN: Soft, nontender, liver spleen not palpable, no masses palpable. PSYCH: Alert and oriented x3; mood and affect tiredl. MUSCULOSKELETAL:No Clubbing/cyanosis;muscles-grossly intact NEUROLOGICAL: Cranial nerves grossly intact; no facial asymmetry, power and sensation grossly intact. LYMPHATICS: No lymph nodes palpable in the axilla and neck INVESTIGATIONS, reviewed in the clinical context: 07/31/2023: White count 18.1 hemoglobin 14.1 platelets 76 sodium 134 potassium 3.8 creatinine 0.69 D-dimer 1.81 COVID 19: Detected EKG tracing personally reviewed by me--sinus tachycardia. Grade 124 Chest x-ray film personally reviewed by me-some basilar infiltrates CT angiogram chest: Negative for PE Assessment and plan: -Acute COVID-19 infection causing sepsis Patient was reluctant to take steroids because of previously taking it for her psoriasis. After discussion is agreed for the same. Decadron 6 mg day. Consult pulmonary to evaluate for Remdesivir. Subcu Lovenox -Sepsis from COVID-19 infection IV fluids -Obesity BMI 35.9 Weight loss measures -COPD in a previous smoker current vaping Albuterol 4 puffs every 4 -Diabetes mellitus type 2 on oral hypoglycemic Follow Accu-Cheks -Hyperlipidemia Crestor Given the complexity and severity of patient's condition expect the patient to be in the hospital at least for 2 overnights Past Medical History Past Medical History: Diabetes Mellitus, Hypertension, Osteoarthritis (OA), Skin Disorder Additional Past Medical History / Comment(s): Hx gastric ulcer., psoriasis., pain right hip History of Any Multi-Drug Resistant Organisms: None Reported Past Surgical History: Section Additional Past Surgical History / Comment(s): x3 Past Anesthesia/Blood Transfusion Reactions: No Reported Reaction, Motion Sickness Past Psychological History: Anxiety, Depression Smoking Status: Former smoker Past Alcohol Use History: None Reported Additional Past Alcohol Use History / Comment(s): PATIENT VAPES FOR THE LAST 6 YEARS, QUIT CIGARETTES 6 YRS AGO, HX OF 1 1/2 PPD., STARTED SMOKING AGE 14. Past Drug Use History: None Reported - Past Family History Father Family Medical History: Deep Vein Thrombosis (DVT) Sister(s) Family Medical History: Cancer Medications and Allergies Home Medications Medication Instructions Recorded Confirmed Type ALPRAZolam [Xanax] 1 mg PO TID PRN 05/26/19 08/08/23 History metFORMIN HCL [Glucophage] 500 mg PO BID 05/26/19 08/08/23 History traZODone HCL 200 mg PO HS 05/26/19 08/08/23 History Rosuvastatin [Crestor] 10 mg PO DAILY 08/08/23 08/08/23 History Allergies Allergy/AdvReac Type Severity Reaction Status Date / Time nickel Allergy Unknown Itching, Verified 08/08/23 10:36 Redness, Dermatitis H2 INHIBITORS Allergy Severe Hives Uncoded 12/01/20 21:52 SURGICAL KAYCE Allergy Unknown Itching, Uncoded 12/01/20 21:52 Redness, Dermatitis Physical Exam Vitals: Vital Signs Temp Pulse Pulse Resp BP BP Pulse Ox 08/09/23 07:00 98.3 F 104 H 20 154/77 95 08/09/23 02:00 99.5 F 118 H 16 134/69 95 08/08/23 22:56 99.1 F 114 H 16 153/79 92 L 08/08/23 21:08 99.1 F 107 H 20 113/61 96 08/08/23 18:00 99.7 F H 112 H 20 116/65 96 08/08/23 16:42 101.0 F H 120 H 22 147/75 93 L 08/08/23 14:56 103.1 F H 08/08/23 14:03 100.0 F H 116 H 20 111/67 94 L Intake and Output 08/08/23 08/09/23 08/09/23 22:59 06:59 14:59 Output Total 350 Balance -350 Output: Urine 350 Other: Weight 86.183 kg Results CBC & Chem 7: 08/08/23 08:04 08/08/23 08:04 Labs: Abnormal Lab Results - Last 24 Hours (Table) 08/08/23 08/08/23 08/08/23 Range/Units 08:04 08:04 09:34 WBC 18.1 H (3.8-10.6) k/uL Neutrophils # 16.7 H (1.3-7.7) k/uL Lymphocytes # 0.5 L (1.0-4.8) k/uL D-Dimer (<0.60) mg/L FEU Sodium 134 L (137-145) mmol/L Carbon Dioxide 17 L (22-30) mmol/L Glucose 162 H (74-99) mg/dL AST 64 H (14-36) U/L Urine Appearance (Clear) Urine Protein (Negative) Urine Glucose (UA) (Negative) Urine Ketones (Negative) Urine Blood (Negative) Urine Bacteria (None) /hpf Hyaline Casts (0-2) /lpf Urine Mucus (None) /hpf Urine Yeast (Budding) (None) /hpf SARS-CoV-2 (PCR) Detected A (Not Detectd) 08/08/23 08/08/23 Range/Units 09:34 13:51 WBC (3.8-10.6) k/uL Neutrophils # (1.3-7.7) k/uL Lymphocytes # (1.0-4.8) k/uL D-Dimer 1.81 H (<0.60) mg/L FEU Sodium (137-145) mmol/L Carbon Dioxide (22-30) mmol/L Glucose (74-99) mg/dL AST (14-36) U/L Urine Appearance Cloudy H (Clear) Urine Protein 2+ H (Negative) Urine Glucose (UA) Trace H (Negative) Urine Ketones 3+ H (Negative) Urine Blood Moderate H (Negative) Urine Bacteria Rare H (None) /hpf Hyaline Casts 4 H (0-2) /lpf Urine Mucus Moderate H (None) /hpf Urine Yeast (Budding) Rare H (None) /hpf SARS-CoV-2 (PCR) (Not Detectd) Thrombosis Risk Factor Assmnt - Choose All That Apply Any of the Below Risk Factors Present?: Yes Each Factor Represents 1 point: Obesity (BMI >25) Other Risk Factors: Yes Each Risk Factor Represents 2 Points: Age 61-74 years Other congenital or acquired thrombophilia - If yes, enter type in comment: No Thrombosis Risk Factor Assessment Total Risk Factor Score: 3 Thrombosis Risk Factor Assessment Level: Moderate Risk
[2023-08-09] MEDS: LACTATED RINGERS 1,000 ML IV SCH (22:06)
[2023-08-09] MEDS: traZODone HCL 100 MG TAB PO SCH (22:06)
[2023-08-10] MEDS: ALBUTEROL HFA INHALER INHALATION SCH ×5 (03:33→18:38)
[2023-08-10] MEDS: LACTATED RINGERS 1,000 ML IV SCH ×2 (05:36→13:18)
[2023-08-10 05:56] LABS: Glucose,Whole Blood 155 mg/dL (70-110)
[2023-08-10] MEDS: INSULIN ASPART (NovoLOG) 100 UNIT/ML VIAL SQ SCH ×3 (06:03→17:30)
[2023-08-10] MEDS: dexAMETHasone 2 MG TAB PO SCH (09:08)
[2023-08-10] MEDS: ENOXAPARIN 40 MG/0.4 ML SYRINGE SQ SCH (09:08)
[2023-08-10] MEDS: ATORVASTATIN 20 MG TAB PO SCH (09:08)
[2023-08-10] MEDS: ALPRAZolam 1 MG TAB PO PRN ×2 (09:11→20:16)
[2023-08-10 12:26] LABS: Glucose,Whole Blood 149 mg/dL (70-110)
--- NOTE | 2023-08-10 13:19 | P.PN ---
Subjective Progress Note Date: 08/10/23 This is a 68-year-old female patient was currently admitted for Covid 19 infection. The patient was apparently very weak at home and her symptoms started approximately 4 days ago, the day after [place]. She has been vaccinated in the past and she stopped vaccination after the first boosted and the patient was experiencing side effects. This is only in first infection with Covid 19. The patient had diminished appetite, feeling weak, body aches, she also reported some increased cough and congestion. No nausea. No vomiting. No abdominal pain. Appetite is quite poor. No focal neurological deficits and intact. She confirmed positive for Covid 19 in emergency department and the patient was started on Decadron. Noted the patient was febrile in the emergency room with a T-max of 101.2. She was also tachycardic and somewhat dehydrated. She was started on IV fluids. The started at 18.1 with a hemoglobin of 14.4 and a platelet count of 296. Sodium is at 134 bicarb of 17 and a BUN of 11 with a creatinine of 0.6 and a glucose of 162. LFTs are within normal limits. The rest of the viral screen was negative with exception of Covid 19. Chest x-ray showed no acute cardiopulmonary abnormalities. A computed tomography scan of the chest showed no evidence of any pulmonary embolism or pneumonia. The patient is not hypoxic. She is on Decadron. He is on normal saline at rate of 75 mL an hour. She is receiving Tylenol for fever and pain. Comorbid conditions include diabetes mellitus and hyperlipidemia. Currently on 2 L O2 nasal cannula with a pulse ox of 96%. On today's evaluation of 08/10/2023, the patient is feeling better. Less short of breath. Cough is subsiding. She is on Decadron. She is weak and ambulating with the help of a walker. Hemodynamically stable. No other new complaints otherwise for now. No new labs are available from today. Pro-calcitonin level is at 0.6. LDH level is at 429. Objective - Vital Signs Vital signs: Vital Signs Temp 99 F 08/10/23 07:05 Pulse 107 H 08/10/23 07:05 Resp 19 08/10/23 07:05 BP 158/79 08/10/23 07:05 Pulse Ox 94 L 08/10/23 08:34 FiO2 Intake & Output 08/09/23 08/10/2308/10/23 18:59 06:59 18:59 Output Total 900 900 Balance -900 -900 Output: Urine 900 900 Other: # Bowel Movements 0 - Exam Gen. appearance the patient is sick looking inches, comfortable hemodynamically stable. No respiratory distress. Body mass index is 35.9 Head exam was generally normal. There was no scleral icterus or corneal arcus. Mucous membranes were moist. Neck was supple and without jugular venous distension, thyromegaly, or carotid bruits. Carotids were easily palpable bilaterally. There was no adenopathy. Lungs sounds are diminished and the clear. The patient has some scattered cough and during the examination. Cardiac exam revealed the PMI to be normally situated and sized. The rhythm was regular and no extrasystoles were noted during several minutes of auscultation. The first and second heart sounds were normal and physiologic splitting of the second heart sound was noted. There were no murmurs, rubs, clicks, or gallops. Abdominal exam revealed normal bowel sounds. The abdomen was soft, non-tender, and without masses, organomegaly, or appreciable enlargement of the abdominal aorta. Examination of the extremities revealed easily palpable radial, femoral and pedal pulses. There was no cyanosis, clubbing or edema. Examination of the skin revealed no evidence of significant rashes, suspicious appearing nevi or other concerning lesions. Neurologically, the patient is awake and alert and the patient does not have any focal neurological deficit. Cranial nerves are essentially intact. - Labs CBC & Chem 7: 08/08/23 08:04 08/08/23 08:04 Labs: Abnormal Lab Results - Last 24 Hours (Table) 08/09/23 08/09/23 08/09/23 Range/Units 12:10 17:13 20:12 POC Glucose (mg/dL) 111 H 184 H (70-110) mg/dL Lactate Dehydrogenase 429 H (120-246) U/L Procalcitonin (0.02-0.09) ng/mL 08/09/23 08/10/23 Range/Units 20:12 05:55 POC Glucose (mg/dL) 155 H (70-110) mg/dL Lactate Dehydrogenase (120-246) U/L Procalcitonin 0.62 H (0.02-0.09) ng/mL Microbiology - Last 24 Hours (Table) 08/08/23 13:51 Blood Culture - Preliminary Blood 08/08/23 08:04 Blood Culture - Preliminary Blood Assessment and Plan Plan: Acute Covid 19 infection. Previously vaccinated with a single booster shot. Symptoms started approximately 4 days ago. Clinically stable on Decadron and the patient is currently on room air oxygen. Cough secondary to above, improving Acute febrile illness secondary to above, currently afebrile Mild leukocytosis Dehydration and intravascular depletion, currently on IV fluids Altered mentation, recovered and the mental status is normal without any focal neurological deficits Diabetes mellitus type 2 Hypertension Hyperlipidemia Plan Clinically improving We'll continue steroids IV fluids with saline at rate of 75 Decadron per protocol, 6 mg on a daily basis Lovenox for DVT prophylaxis 40 mg subcu daily Check pro calcitonin level Check LDH and CRP are mildly elevated Pro calcitonin level is at 0.6 CTA of the chest showed no evidence of any pulmonary embolism or pneumonia Resume all medications Tylenol for fever, currently afebrile Vitamin supplements We'll continue to follow
[2023-08-10] MEDS: LORATADINE-PSEUDOEPH 5-120 MG 1 EACH TAB.ER.12H PO SCH ×2 (15:23→20:17)
[2023-08-10 17:18] LABS: Glucose,Whole Blood 195 mg/dL (70-110)
[2023-08-10] MEDS: traZODone HCL 100 MG TAB PO SCH (20:16)
[2023-08-10 20:40] LABS: Glucose,Whole Blood 172 mg/dL (70-110)
--- NOTE | 2023-08-10 22:46 | P.PN ---
Progress Note - Text Progress Note Date: 08/10/23 Chief Complaint: Feeling sick Pleasant 68-year-old patient is an 68-year-old patient follows with Jolie Ramirez Chronic stable medical conditions include diabetes mellitus, hypertension, osteoarthritis, gastric ulcer, psoriasis. 3 days patient being feeling rather sick. Cough. No phlegm. Fevers. Very short of breath. Aching all congested chest poor appetite. Tired rundown. Patient of Dr. Abi RANDLE-19 positive. No diarrhea. No change in mental status. at the bedside with patient appears rather sick. During the history taking keep dozing off. 08/10/2023: Better. Less wheezing. Started to eat some. Encouraged to walk in the room. Questions answered. Tolerating Decadron. Active Medications Acetaminophen (Acetaminophen Tab 325 Mg Tab) 650 mg PO Q6HR PRN PRN Reason: Mild Pain or Fever > 100.5 Last Admin: 08/09/23 17:48 Dose: 650 mg Al Hydroxide/Mg Hydroxide (Mag Hydrox/Al Hydrox/Simeth 30 Ml Cup) 15 ml PO Q6HR PRN PRN Reason: Indigestion Albuterol Sulfate (Albuterol Hfa Inhaler) 4 puff INHALATION Q4H [facility] Last Admin: 08/10/23 18:38 Dose: 4 puff Alprazolam (Alprazolam 1 Mg Tab) 1 mg PO TID PRN PRN Reason: Anxiety Last Admin: 08/10/23 20:16 Dose: 1 mg Atorvastatin Calcium (Atorvastatin 20 Mg Tab) 20 mg PO DAILY [facility] Last Admin: 08/10/23 09:08 Dose: 20 mg Dexamethasone (Dexamethasone 2 Mg Tab) 6 mg PO DAILY [facility] Last Admin: 08/10/23 09:08 Dose: 6 mg Dextrose/Water (Dextrose 50% Syringe 50 Ml) 25 ml IVP PER PROTOCOL PRN; Protocol PRN Reason: Hypoglycemia Dextrose/Water (Dextrose 50% Syringe 50 Ml) 50 ml IVP PER PROTOCOL PRN; Protocol PRN Reason: Hypoglycemia Enoxaparin Sodium (Enoxaparin 40 Mg/0.4 Ml Syringe) 40 mg SQ DAILY [facility] Last Admin: 08/10/23 09:08 Dose: 40 mg Ibuprofen (Ibuprofen 400 Mg Tab) 400 mg PO Q6HR PRN PRN Reason: Mild Pain or Fever > 100.5 Last Admin: 08/09/23 00:26 Dose: 400 mg Insulin Aspart (Insulin Aspart (Novolog) 100 Unit/Ml Vial) 0 unit SQ AC-TID [facility]; Protocol Last Admin: 08/10/23 17:30 Dose: 2 unit Loratadine/Pseudoephedrine Sulfate (Loratadine-Pseudoeph 5-120 Mg 1 Each Tab.Er.12h) 1 each PO Q12HR [facility] Last Admin: 08/10/23 20:17 Dose: 1 each Naloxone HCl (Naloxone 0.4 Mg/Ml 1 Ml Vial) 0.2 mg IV Q2M PRN PRN Reason: Opioid Reversal Trazodone HCl (Trazodone Hcl 100 Mg Tab) 200 mg PO HS [facility] Last Admin: 08/10/23 20:16 Dose: 200 mg Social history: Patient smoked a pack a day for close to 40 years stopped about 6 years ago. Currently vaping. . Physical examination: VITAL SIGNS: 99.4, 106, 18, 164/83, 91% room air GENERAL: Sitting up in a chair, looking better EYES: Pupils equal. Conjunctiva normal. HEENT: External appearance of nose and ears normal, oral cavity grossly normal. NECK: JVD not raised; masses not palpable. HEART: First and second heart sounds are normal; no edema. LUNGS: Respiratory rate increased, raised scattered crackles. Wheezing ABDOMEN: Soft, nontender, liver spleen not palpable, no masses palpable. PSYCH: Alert and oriented x3; mood and affect tiredl. MUSCULOSKELETAL:No Clubbing/cyanosis;muscles-grossly intact INVESTIGATIONS, reviewed in the clinical context: 07/31/2023: White count 18.1 hemoglobin 14.1 platelets 76 sodium 134 potassium 3.8 creatinine 0.69 D-dimer 1.81 COVID 19: Detected EKG tracing personally reviewed by me--sinus tachycardia. Grade 124 Chest x-ray film personally reviewed by me-some basilar infiltrates CT angiogram chest: Negative for PE Assessment and plan: -Acute COVID-19 infection causing sepsis Patient was reluctant to take steroids because of previously taking it for her psoriasis. After discussion is agreed for the same. Decadron 6 mg day. Consult pulmonary to evaluate for Remdesivir. Subcu Lovenox -Sepsis from COVID-19 infection IV fluids -Obesity BMI 35.9 Weight loss measures -COPD exacerbation in a previous smoker current vaping Albuterol 4 puffs every 4. Decadron -Diabetes mellitus type 2 on oral hypoglycemic Follow Accu-Cheks -Hyperlipidemia Crestor In the spirometry. Increase activity as started. Contact to current medications. Not ready for discharge Past Medical History Past Medical History: Diabetes Mellitus, Hypertension, Osteoarthritis (OA), Skin Disorder Additional Past Medical History / Comment(s): Hx gastric ulcer., psoriasis., pain right hip History of Any Multi-Drug Resistant Organisms: None Reported Past Surgical History: Section Additional Past Surgical History / Comment(s): x3 Past Anesthesia/Blood Transfusion Reactions: No Reported Reaction, Motion Sickness Past Psychological History: Anxiety, Depression Smoking Status: Former smoker Past Alcohol Use History: None Reported Additional Past Alcohol Use History / Comment(s): PATIENT VAPES FOR THE LAST 6 YEARS, QUIT CIGARETTES 6 YRS AGO, HX OF 1 1/2 PPD., STARTED SMOKING AGE 14. Past Drug Use History: None Reported
[2023-08-11] MEDS: ALBUTEROL HFA INHALER INHALATION SCH ×6 (01:00→20:04)
[2023-08-11 06:11] LABS: Glucose,Whole Blood 121 mg/dL (70-110)
[2023-08-11] MEDS: INSULIN ASPART (NovoLOG) 100 UNIT/ML VIAL SQ SCH ×3 (06:13→17:32)
[2023-08-11] MEDS: dexAMETHasone 2 MG TAB PO SCH (08:46)
[2023-08-11] MEDS: ALPRAZolam 1 MG TAB PO PRN ×2 (08:46→21:42)
[2023-08-11] MEDS: LORATADINE-PSEUDOEPH 5-120 MG 1 EACH TAB.ER.12H PO SCH ×3 (08:46→21:42)
[2023-08-11] MEDS: ENOXAPARIN 40 MG/0.4 ML SYRINGE SQ SCH (08:46)
[2023-08-11] MEDS: ATORVASTATIN 20 MG TAB PO SCH (08:47)
[2023-08-11] MEDS ORDERED: lisinopriL 20 MG TAB PO SCH (09:00)
[2023-08-11] MEDS: LISINOPRIL-HCTZ 10-12.5 MG 1 EACH TAB PO SCH (09:33)
[2023-08-11 11:40] LABS: Glucose,Whole Blood 138 mg/dL (70-110)
--- NOTE | 2023-08-11 13:43 | P.PN ---
Subjective Progress Note Date: 08/11/23 This is a 68-year-old female patient was currently admitted for Covid 19 infection. The patient was apparently very weak at home and her symptoms started approximately 4 days ago, the day after [place]. She has been vaccinated in the past and she stopped vaccination after the first boosted and the patient was experiencing side effects. This is only in first infection with Covid 19. The patient had diminished appetite, feeling weak, body aches, she also reported some increased cough and congestion. No nausea. No vomiting. No abdominal pain. Appetite is quite poor. No focal neurological deficits and intact. She confirmed positive for Covid 19 in emergency department and the patient was started on Decadron. Noted the patient was febrile in the emergency room with a T-max of 101.2. She was also tachycardic and somewhat dehydrated. She was started on IV fluids. The started at 18.1 with a hemoglobin of 14.4 and a platelet count of 296. Sodium is at 134 bicarb of 17 and a BUN of 11 with a creatinine of 0.6 and a glucose of 162. LFTs are within normal limits. The rest of the viral screen was negative with exception of Covid 19. Chest x-ray showed no acute cardiopulmonary abnormalities. A computed tomography scan of the chest showed no evidence of any pulmonary embolism or pneumonia. The patient is not hypoxic. She is on Decadron. He is on normal saline at rate of 75 mL an hour. She is receiving Tylenol for fever and pain. Comorbid conditions include diabetes mellitus and hyperlipidemia. Currently on 2 L O2 nasal cannula with a pulse ox of 96%. On today's evaluation of 08/10/2023, the patient is feeling better. Less short of breath. Cough is subsiding. She is on Decadron. She is weak and ambulating with the help of a walker. Hemodynamically stable. No other new complaints otherwise for now. No new labs are available from today. Pro-calcitonin level is at 0.6. LDH level is at 429. On 08/11/2023, the patient is having some visual hallucinations overnight probably related to the Decadron. No focal neurological deficit. No significant shortness of breath. Occasional cough is still present. No other complaints otherwise. Objective - Vital Signs Vital signs: Vital Signs Temp 98.3 F 08/11/23 08:00 Pulse 104 H 08/11/23 08:00 Resp 16 08/11/23 08:00 BP 152/74 08/11/23 08:13 Pulse Ox 95 08/11/23 08:00 FiO2 Intake & Output 08/10/23 08/11/23 08/11/23 18:59 06:59 18:59 Output Total 750 900 275 Balance -750 -900 -275 Output: Urine 750 900 275 Other: Voiding Method External Catheter External Catheter # Voids 2 # Bowel Movements 1 0 - Exam Gen. appearance the patient is sick looking inches, comfortable hemodynamically stable. No respiratory distress. Body mass index is 35.9 Head exam was generally normal. There was no scleral icterus or corneal arcus. Mucous membranes were moist. Neck was supple and without jugular venous distension, thyromegaly, or carotid bruits. Carotids were easily palpable bilaterally. There was no adenopathy. Lungs sounds are diminished and the clear. The patient has some scattered cough and during the examination. Cardiac exam revealed the PMI to be normally situated and sized. The rhythm was regular and no extrasystoles were noted during several minutes of auscultation. The first and second heart sounds were normal and physiologic splitting of the second heart sound was noted. There were no murmurs, rubs, clicks, or gallops. Abdominal exam revealed normal bowel sounds. The abdomen was soft, non-tender, and without masses, organomegaly, or appreciable enlargement of the abdominal aorta. Examination of the extremities revealed easily palpable radial, femoral and pedal pulses. There was no cyanosis, clubbing or edema. Examination of the skin revealed no evidence of significant rashes, suspicious appearing nevi or other concerning lesions. Neurologically, the patient is awake and alert and the patient does not have any focal neurological deficit. Cranial nerves are essentially intact. - Labs CBC & Chem 7: 08/08/23 08:04 08/08/23 08:04 Labs: Abnormal Lab Results - Last 24 Hours (Table) 08/10/23 08/10/23 08/11/23 Range/Units 17:17 20:39 06:10 POC Glucose (mg/dL) 195 H 172 H 121 H (70-110) mg/dL 08/11/23 Range/Units 11:38 POC Glucose (mg/dL) 138 H (70-110) mg/dL Microbiology - Last 24 Hours (Table) 08/08/23 13:51 Blood Culture - Preliminary Blood 08/08/23 08:04 Blood Culture - Preliminary Blood Assessment and Plan Plan: Acute Covid 19 infection. Previously vaccinated with a single booster shot. Symptoms started approximately 4 days ago. Clinically stable on Decadron and the patient is currently on room air oxygen. Cough secondary to above, improving Acute febrile illness secondary to above, currently afebrile Mild leukocytosis Dehydration and intravascular depletion, currently on IV fluids Altered mentation, recovered and the mental status is normal without any focal neurological deficits Diabetes mellitus type 2 Hypertension Hyperlipidemia Plan Clinically improving We'll continue steroids, completed a total of 10 day course. The patient is accompanied some visual hallucinations overnight Increase oral intake Decadron per protocol, 6 mg on a daily basis, completed a total of 10 day course Lovenox for DVT prophylaxis 40 mg subcu daily Check pro calcitonin level Check LDH and CRP are mildly elevated Pro calcitonin level is at 0.6 CTA of the chest showed no evidence of any pulmonary embolism or pneumonia Resume all medications Tylenol for fever, currently afebrile Vitamin supplements Oxygenation is stable Limited cough secondary to above Consider discharge today
[2023-08-11 17:07] LABS: Glucose,Whole Blood 198 mg/dL (70-110)
--- NOTE | 2023-08-11 17:56 | P.PN ---
Progress Note - Text Progress Note Date: 08/11/23 Chief Complaint: Feeling sick Pleasant 68-year-old patient is an 68-year-old patient follows with Jolie Ramirez Chronic stable medical conditions include diabetes mellitus, hypertension, osteoarthritis, gastric ulcer, psoriasis. 3 days patient being feeling rather sick. Cough. No phlegm. Fevers. Very short of breath. Aching all congested chest poor appetite. Tired rundown. Patient of Dr. Abi RANDLE-19 positive. No diarrhea. No change in mental status. at the bedside with patient appears rather sick. During the history taking keep dozing off. 08/10/2023: Better. Less wheezing. Started to eat some. Encouraged to walk in the room. Questions answered. Tolerating Decadron. 08/11/2023: Patient encouraged to walk in the room. Some shortness breath wheezing present. Other medications to continue. Eating well Active Medications Acetaminophen (Acetaminophen Tab 325 Mg Tab) 650 mg PO Q6HR PRN PRN Reason: Mild Pain or Fever > 100.5 Last Admin: 08/09/23 17:48 Dose: 650 mg Al Hydroxide/Mg Hydroxide (Mag Hydrox/Al Hydrox/Simeth 30 Ml Cup) 15 ml PO Q6HR PRN PRN Reason: Indigestion Albuterol Sulfate (Albuterol Hfa Inhaler) 4 puff INHALATION Q4H [facility] Last Admin: 08/11/23 15:36 Dose: 4 puff Alprazolam (Alprazolam 1 Mg Tab) 1 mg PO TID PRN PRN Reason: Anxiety Last Admin: 08/11/23 08:46 Dose: 1 mg Atorvastatin Calcium (Atorvastatin 20 Mg Tab) 20 mg PO DAILY [facility] Last Admin: 08/11/23 08:47 Dose: 20 mg Dexamethasone (Dexamethasone 2 Mg Tab) 6 mg PO DAILY [facility] Last Admin: 08/11/23 08:46 Dose: 6 mg Dextrose/Water (Dextrose 50% Syringe 50 Ml) 25 ml IVP PER PROTOCOL PRN; Protocol PRN Reason: Hypoglycemia Dextrose/Water (Dextrose 50% Syringe 50 Ml) 50 ml IVP PER PROTOCOL PRN; Protocol PRN Reason: Hypoglycemia Enoxaparin Sodium (Enoxaparin 40 Mg/0.4 Ml Syringe) 40 mg SQ DAILY [facility] Last Admin: 08/11/23 08:46 Dose: 40 mg Lisinopril/HCTZ (Lisinopril-Hctz 10-12.5 Mg 1 Each Tab) 1 each PO DAILY [facility] Last Admin: 08/11/23 09:33 Dose: 1 each Ibuprofen (Ibuprofen 400 Mg Tab) 400 mg PO Q6HR PRN PRN Reason: Mild Pain or Fever > 100.5 Last Admin: 08/09/23 00:26 Dose: 400 mg Insulin Aspart (Insulin Aspart (Novolog) 100 Unit/Ml Vial) 0 unit SQ AC-TID [facility]; Protocol Last Admin: 08/11/23 17:32 Dose: 2 unit Loratadine/Pseudoephedrine Sulfate (Loratadine-Pseudoeph 5-120 Mg 1 Each Tab.Er.12h) 1 each PO Q12HR [facility] Last Admin: 08/11/23 08:48 Dose: Not Given Naloxone HCl (Naloxone 0.4 Mg/Ml 1 Ml Vial) 0.2 mg IV Q2M PRN PRN Reason: Opioid Reversal Trazodone HCl (Trazodone Hcl 100 Mg Tab) 200 mg PO HS [facility] Last Admin: 08/10/23 20:16 Dose: 200 mg Social history: Patient smoked a pack a day for close to 40 years stopped about 6 years ago. Currently vaping. . Physical examination: VITAL SIGNS: 98.1, 111, 18, 121/75, 95% room air GENERAL: Pale, better EYES: Pupils equal. Conjunctiva normal. HEENT: External appearance of nose and ears normal, oral cavity grossly normal. NECK: JVD not raised; masses not palpable. HEART: First and second heart sounds are normal; no edema. LUNGS: Respiratory rate increased, his breath sound Wheezing ABDOMEN: Soft, nontender, liver spleen not palpable, no masses palpable. PSYCH: Alert and oriented x3; mood and affect tiredl. MUSCULOSKELETAL:No Clubbing/cyanosis;muscles-grossly intact INVESTIGATIONS, reviewed in the clinical context: 07/31/2023: White count 18.1 hemoglobin 14.1 platelets 76 sodium 134 potassium 3.8 creatinine 0.69 D-dimer 1.81 COVID 19: Detected EKG tracing personally reviewed by me--sinus tachycardia. Grade 124 Chest x-ray film personally reviewed by me-some basilar infiltrates CT angiogram chest: Negative for PE Assessment and plan: -Acute COVID-19 infection causing sepsis Patient was reluctant to take steroids because of previously taking it for her psoriasis. After discussion is agreed for the same. Decadron 6 mg day. Consult pulmonary to evaluate for Remdesivir. Subcu Lovenox -Sepsis from COVID-19 infection: Improved IV fluids -Obesity BMI 35.9 Weight loss measures -COPD exacerbation in a previous smoker current vaping slow to respond Albuterol 4 puffs every 4. Decadron -Diabetes mellitus type 2 on oral hypoglycemic Follow Accu-Cheks -Hyperlipidemia Crestor Increase activity. Other medications to continue. Past Medical History Past Medical History: Diabetes Mellitus, Hypertension, Osteoarthritis (OA), Skin Disorder Additional Past Medical History / Comment(s): Hx gastric ulcer., psoriasis., pain right hip History of Any Multi-Drug Resistant Organisms: None Reported Past Surgical History: Section Additional Past Surgical History / Comment(s): x3 Past Anesthesia/Blood Transfusion Reactions: No Reported Reaction, Motion Sickness Past Psychological History: Anxiety, Depression Smoking Status: Former smoker Past Alcohol Use History: None Reported Additional Past Alcohol Use History / Comment(s): PATIENT VAPES FOR THE LAST 6 YEARS, QUIT CIGARETTES 6 YRS AGO, HX OF 1 1/2 PPD., STARTED SMOKING AGE 14. Past Drug Use History: None Reported
[2023-08-11] MEDS: traZODone HCL 100 MG TAB PO SCH (21:42)
[2023-08-11 22:09] LABS: Glucose,Whole Blood 227 mg/dL (70-110)
[2023-08-12] MEDS: ALBUTEROL HFA INHALER INHALATION SCH ×4 (00:06→12:17)
[2023-08-12 05:37] LABS: Glucose,Whole Blood 100 mg/dL (70-110)
[2023-08-12] MEDS: INSULIN ASPART (NovoLOG) 100 UNIT/ML VIAL SQ SCH ×2 (05:37→12:27)
[2023-08-12 06:28] LABS: Glucose,Whole Blood 102 mg/dL (70-110)
[2023-08-12] MEDS: ATORVASTATIN 20 MG TAB PO SCH (08:27)
[2023-08-12] MEDS: LISINOPRIL-HCTZ 10-12.5 MG 1 EACH TAB PO SCH (08:27)
[2023-08-12] MEDS: dexAMETHasone 2 MG TAB PO SCH (08:28)
[2023-08-12] MEDS: ENOXAPARIN 40 MG/0.4 ML SYRINGE SQ SCH (08:28)
[2023-08-12] MEDS: LORATADINE-PSEUDOEPH 5-120 MG 1 EACH TAB.ER.12H PO SCH (08:28)
[2023-08-12] MEDS: ALPRAZolam 1 MG TAB PO PRN (08:32)
[2023-08-12 11:37] LABS: Glucose,Whole Blood 165 mg/dL (70-110)
--- NOTE | 2023-08-12 14:36 | P.PN ---
Subjective Progress Note Date: 08/12/23 This is a 68-year-old female patient was currently admitted for Covid 19 infection. The patient was apparently very weak at home and her symptoms started approximately 4 days ago, the day after [place]. She has been vaccinated in the past and she stopped vaccination after the first boosted and the patient was experiencing side effects. This is only in first infection with Covid 19. The patient had diminished appetite, feeling weak, body aches, she also reported some increased cough and congestion. No nausea. No vomiting. No abdominal pain. Appetite is quite poor. No focal neurological deficits and intact. She confirmed positive for Covid 19 in emergency department and the patient was started on Decadron. Noted the patient was febrile in the emergency room with a T-max of 101.2. She was also tachycardic and somewhat dehydrated. She was started on IV fluids. The started at 18.1 with a hemoglobin of 14.4 and a platelet count of 296. Sodium is at 134 bicarb of 17 and a BUN of 11 with a creatinine of 0.6 and a glucose of 162. LFTs are within normal limits. The rest of the viral screen was negative with exception of Covid 19. Chest x-ray showed no acute cardiopulmonary abnormalities. A computed tomography scan of the chest showed no evidence of any pulmonary embolism or pneumonia. The patient is not hypoxic. She is on Decadron. He is on normal saline at rate of 75 mL an hour. She is receiving Tylenol for fever and pain. Comorbid conditions include diabetes mellitus and hyperlipidemia. Currently on 2 L O2 nasal cannula with a pulse ox of 96%. On today's evaluation of 08/10/2023, the patient is feeling better. Less short of breath. Cough is subsiding. She is on Decadron. She is weak and ambulating with the help of a walker. Hemodynamically stable. No other new complaints otherwise for now. No new labs are available from today. Pro-calcitonin level is at 0.6. LDH level is at 429. On 08/11/2023, the patient is having some visual hallucinations overnight probably related to the Decadron. No focal neurological deficit. No significant shortness of breath. Occasional cough is still present. No other complaints otherwise. On 08/12/2023, no new complaints and the patient's is still on Decadron. Limited cough. No significant sputum production. No other complaints. Discharge planning is in progress. Objective - Vital Signs Vital signs: Vital Signs Temp 98.1 F 08/12/23 07:10 Pulse 100 08/12/23 07:10 Resp 16 08/12/23 07:10 BP 161/92 08/12/23 07:10 Pulse Ox 95 08/12/23 07:10 FiO2 Intake & Output 08/11/23 08/12/23 08/12/23 18:59 06:59 18:59 Output Total 275 Balance -275 Output: Urine 275 Other: Voiding Method Toilet Toilet External Catheter External Catheter # Voids 3 - Exam Gen. appearance the patient is sick looking inches, comfortable hemodynamically stable. No respiratory distress. Body mass index is 35.9 Head exam was generally normal. There was no scleral icterus or corneal arcus. Mucous membranes were moist. Neck was supple and without jugular venous distension, thyromegaly, or carotid bruits. Carotids were easily palpable bilaterally. There was no adenopathy. Lungs sounds are diminished and the clear. The patient has some scattered cough and during the examination. Cardiac exam revealed the PMI to be normally situated and sized. The rhythm was regular and no extrasystoles were noted during several minutes of auscultation. The first and second heart sounds were normal and physiologic splitting of the second heart sound was noted. There were no murmurs, rubs, clicks, or gallops. Abdominal exam revealed normal bowel sounds. The abdomen was soft, non-tender, and without masses, organomegaly, or appreciable enlargement of the abdominal aorta. Examination of the extremities revealed easily palpable radial, femoral and pedal pulses. There was no cyanosis, clubbing or edema. Examination of the skin revealed no evidence of significant rashes, suspicious appearing nevi or other concerning lesions. Neurologically, the patient is awake and alert and the patient does not have any focal neurological deficit. Cranial nerves are essentially intact. - Labs CBC & Chem 7: 08/08/23 08:04 08/08/23 08:04 Labs: Abnormal Lab Results - Last 24 Hours (Table) 08/11/23 08/11/23 08/12/23 Range/Units 17:05 22:05 11:35 POC Glucose (mg/dL) 198 H 227 H 165 H (70-110) mg/dL Microbiology - Last 24 Hours (Table) 08/08/23 13:51 Blood Culture - Preliminary Blood 08/08/23 08:04 Blood Culture - Preliminary Blood Assessment and Plan Plan: Acute Covid 19 infection. Previously vaccinated with a single booster shot. Symptoms started approximately 4 days ago. Clinically stable on Decadron and the patient is currently on room air oxygen. Cough secondary to above, improving Acute febrile illness secondary to above, currently afebrile Mild leukocytosis Dehydration and intravascular depletion, currently on IV fluids Altered mentation, recovered and the mental status is normal without any focal neurological deficits Diabetes mellitus type 2 Hypertension Hyperlipidemia Plan Clinically improving, no new complaints. Cough is anticipated to subside We'll continue steroids, completed a total of 10 day course. No hallucinations over the past 48 hours Increase oral intake, tolerating diet Decadron per protocol, 6 mg on a daily basis, completed a total of 10 day course Lovenox for DVT prophylaxis 40 mg subcu daily Check pro calcitonin level Check LDH and CRP are mildly elevated Pro calcitonin level is at 0.6 CTA of the chest showed no evidence of any pulmonary embolism or pneumonia Resume all medications Tylenol for fever, currently afebrile Vitamin supplements Oxygenation is stable Limited cough secondary to above Consider discharge today
[2023-08-12 14:38] VITALS: BP 112/65; PULSE 116; RESP 20; TEMP 97.9
--- NOTE | 2023-08-12 19:16 | P.DS ---
Providers Date of admission: 08/08/23 19:40 Expected date of discharge: 08/12/23 Attending physician: Manpreet Pillai Consults: 08/09/23 11:05 Consult Physician Routine Consulting Provider: Ana Vu Consult Reason/Comments: possible Remdesevir covid Do you want consulting provider notified?: Yes [facility]: Chief Complaint: Feeling sick Pleasant 68-year-old patient is an 68-year-old patient follows with Jolie Navarretemer Chronic stable medical conditions include diabetes mellitus, hypertension, oste oarthritis, gastric ulcer, psoriasis. 3 days patient being feeling rather sick. Cough. No phlegm. Fevers. Very short of breath. Aching all congested chest poor appetite. Tired rundown. Patient of Dr. Abi RANDLE-19 positive. No diarrhea. No change in mental status. at the bedside with patient appears rather sick. During the history taking keep dozing off. 08/10/2023: Better. Less wheezing. Started to eat some. Encouraged to walk in the room. Questions answered. Tolerating Decadron. 08/11/2023: Patient encouraged to walk in the room. Some shortness breath wheezing present. Other medications to continue. Eating well 08/12/2023: Breathing better. Discussed with patient. Discharge on prednisone taper. Symbicort added. Social history: Patient smoked a pack a day for close to 40 years stopped about 6 years ago. Currently vaping. . Physical examination: VITAL SIGNS: 97.9, 100, 16, 112 was 55, 95% room air GENERAL: Comfortable EYES: Pupils equal. Conjunctiva normal. HEENT: External appearance of nose and ears normal, oral cavity grossly normal. NECK: JVD not raised; masses not palpable. HEART: First and second heart sounds are normal; no edema. LUNGS: Respiratory rate normal. Decreased breath sounds. ABDOMEN: Soft, nontender, liver spleen not palpable, no masses palpable. PSYCH: Alert and oriented x3; mood and affect tiredl. MUSCULOSKELETAL:No Clubbing/cyanosis;muscles-grossly intact INVESTIGATIONS, reviewed in the clinical context: 07/31/2023: White count 18.1 hemoglobin 14.1 platelets 76 sodium 134 potassium 3.8 creatinine 0.69 D-dimer 1.81 COVID 19: Detected EKG tracing personally reviewed by me--sinus tachycardia. Grade 124 Chest x-ray film personally reviewed by me-some basilar infiltrates CT angiogram chest: Negative for PE Assessment and plan: -Acute COVID-19 infection causing sepsis: Improved Patient was reluctant to take steroids because of previously taking it for her psoriasis. After discussion is agreed for the same. Decadron 6 mg day. By pulmonary Subcu Lovenox -Sepsis from COVID-19 infection: Improved IV fluids -Obesity BMI 35.9 Weight loss measures -COPD exacerbation in a previous smoker current vaping Albuterol 4 puffs every 4. Decadron Charge on prednisone taper in Symbicort -Diabetes mellitus type 2 on oral hypoglycemic Metformin -Hyperlipidemia Crestor Disposition: Home Past Medical History Past Medical History: Diabetes Mellitus, Hypertension, Osteoarthritis (OA), Skin Disorder Additional Past Medical History / Comment(s): Hx gastric ulcer., psoriasis., pain right hip History of Any Multi-Drug Resistant Organisms: None Reported Past Surgical History: Section Additional Past Surgical History / Comment(s): x3 Past Anesthesia/Blood Transfusion Reactions: No Reported Reaction, Motion Sickn ess Past Psychological History: Anxiety, Depression Smoking Status: Former smoker Past Alcohol Use History: None Reported Additional Past Alcohol Use History / Comment(s): PATIENT VAPES FOR THE LAST 6 YEARS, QUIT CIGARETTES 6 YRS AGO, HX OF 1 1/2 PPD., STARTED SMOKING AGE 14. Past Drug Use History: None Reported Plan - Discharge Summary Discharge Rx Participant: No New Discharge Prescriptions: New Loratadine-Pseudoeph 5-120 mg [Claritin-D 12 Hour] 1 each PO Q12HR #10 tab predniSONE 10 mg PO DAILY #30 tab Albuterol Inhaler [Ventolin Hfa Inhaler] 4 puff INHALATION Q4H PRN #1 each PRN Reason: Wheezing Budesonide/Formoterol Fumarate [Symbicort 80-4.5 Mcg Inhaler] 1 puff INHALATION BID #1 each Continue metFORMIN HCL [Glucophage] 500 mg PO BID ALPRAZolam [Xanax] 1 mg PO TID PRN PRN Reason: Anxiety traZODone HCL 200 mg PO HS Rosuvastatin [Crestor] 10 mg PO DAILY Discharge Medication List ALPRAZolam [Xanax] 1 mg PO TID PRN 05/26/19 [History] metFORMIN HCL [Glucophage] 500 mg PO BID 05/26/19 [History] traZODone HCL 200 mg PO HS 05/26/19 [History] Rosuvastatin [Crestor] 10 mg PO DAILY 08/08/23 [History] Albuterol Inhaler [Ventolin Hfa Inhaler] 4 puff INHALATION Q4H PRN #1 each 08/12/23 [Rx] Budesonide/Formoterol Fumarate [Symbicort 80-4.5 Mcg Inhaler] 1 puff INHALATION BID #1 each 08/12/23 [Rx] Loratadine-Pseudoeph 5-120 mg [Claritin-D 12 Hour] 1 each PO Q12HR #10 tab 08/12/23 [Rx] predniSONE 10 mg PO DAILY #30 tab 08/12/23 [Rx] Follow up Appointment(s)/Referral(s): Joile Belle DO [Primary Care Provider] - 1-2 days Ana Vu MD [STAFF PHYSICIAN] - 1 Week Patient Instructions/Handouts: Coronavirus Disease 2019 (COVID-19) Discharge Disposition: HOME SELF-CARE
== END 2023-08-12 15:10 | disposition home or self-care (01) | DRG 871 ==
LOC: EC 07:30 → 6NMEDSUR 19:40 → OBSVTOIN 08-09 20:44 → UNDODISOB 08-12 15:10
PROVIDERS: ADMIT Hospitalist; ATTEND Hospitalist
DX: A41.89 Other specified sepsis (principal); U07.1 COVID-19; J44.1 Chronic obstructive pulmonary disease with (acute) exacerbation; E11.9 Type 2 diabetes mellitus without complications; Z79.84 Long term (current) use of oral hypoglycemic drugs; I10 Essential (primary) hypertension; M19.90 Unspecified osteoarthritis, unspecified site; Z87.11 Personal history of peptic ulcer disease; L40.9 Psoriasis, unspecified; T38.0X5A Adverse effect of glucocorticoids and synthetic analogues, initial encounter; F17.290 Nicotine dependence, other tobacco product, uncomplicated; R44.1 Visual hallucinations; F32.A Depression, unspecified; F41.9 Anxiety disorder, unspecified; E86.0 Dehydration; E78.5 Hyperlipidemia, unspecified; E66.9 Obesity, unspecified; Z68.35 Body mass index [BMI] 35.0-35.9, adult; Z79.51 Long term (current) use of inhaled steroids; Z79.899 Other long term (current) drug therapy
CPT/HCPCS: 36415; 71046; 71275; 80053; 81001; 83605; 83615; 84145; 84484; 85025; 85379; 87040; 87636; 93005; 94640; 94760; 96360; 96361; 96372; 99285

== ENCOUNTER → 2025-02-22 | Outpatient (CLI) | payer MEDICARE ==
--- NOTE | 2025-02-28 22:52 | CTL ---
EXAMINATION TYPE: CT Low Dose Lung DATE OF EXAM: 02/22/2025 11:38 AM COMPARISON: 08/08/2023 CLINICAL INDICATION: Female, 69 years old with history of Z87.891 PERSONAL HISTORY OF NICOTINE DEPEND ENCE, smoker, History of tobacco use. Current smoker with 60 pack-year history TECHNIQUE: Low dose computed tomography scan was performed through the chest at 1 mm thick sections a nd reconstructed images in multiple planes at 1 mm and [address] DLP: 85.8 mGycm, CT CTDI: 2.2 mGy, Automated exposure control for dose reduction was used. CT DIAGNOSTIC QUALITY: Satisfactory FINDINGS: Heart normal size but with [id number] pericardial effusion measuring 1.3 cm thick, increased f rom prior. LAD and RCA coronary artery calcifications are present. Mild aortic valve calcifications. Aorta normal caliber with mild atherosclerotic arch calcifications and conventional vessel branching anatomy. No thoracic lymphadenopathy by CT size criteria. Lungs show mild to moderate emphysematous change in mild diffuse bronchial wall thickening. No consol idation or pleural effusion. No suspicious pulmonary nodules. Visualized upper abdomen shows fusiform ectasia mid abdominal aorta to 2.5 cm only partially visualiz ed. Left renal cyst measuring up to 5.0 cm. Bilateral low density adrenal nodules measuring up to 2.8 cm on the right and 1.6 cm on the left. Albert e punctate calcifications are present on the right. Density characteristics favor lipid rich adrenal adenomas. Mild degenerative disc disease throughout the thoracic spine. More moderate to advanced spondylotic c hanges cervical spine. IMPRESSION: 1. BI-RADS 1, negative. No suspicious pulmonary nodules. 2. COPD with [id number] emphysema. Advise smoking cessation. 3. Nonspecific, small to moderate-sized pericardial effusion measuring 1.3 cm thick. 4. Bilateral lipid rich adrenal adenomas measuring up to 2.8 cm. 5. Partially visualized ectasia of the abdominal aorta up to at least 2.5 cm but only partially visua lized. Consider screening aortic ultrasound for further assessment. CT LUNG RAD AND CT CHEST RECOMMENDATION: Lung-Rad 1 Negative: Continue annual screening with LDCT in 12 months. S Modifier (other clinically significant findings): S, see impression # 3, 4, and 5 above. [facility], Workstation: [email or web address], 02/28/2025 10:49 PM
== END | disposition home or self-care (01) ==
LOC: RADCTMAIN 11:02
PROVIDERS: ATTEND Family Medicine
DX: Z12.2 Encounter for screening for malignant neoplasm of respiratory organs (principal); J43.9 Emphysema, unspecified; I31.39 Other pericardial effusion (noninflammatory); Z87.891 Personal history of nicotine dependence; E27.9 Disorder of adrenal gland, unspecified; I77.811 Abdominal aortic ectasia
CPT/HCPCS: 71271